=== PATIENT | female | born 1955 | race Caucasian/White ===

== ENCOUNTER 2018-07-28 17:58 | Emergency (ER) | payer OTHER ==
[2018-07-28 19:20] LABS: Absolute Lymphocytes (CBC) 2.5 K/uL (0.7-4.9); Absolute Monocytes 0.5 K/uL (0.1-1.3); Absolute Neutrophil 5.2 K/uL (1.8-8.0); Basophils % 0.7 % (0-1.3); Hematocrit 40.6 % (36.0-45.0); Lymphocytes % 29.2 % (15.3-44.8); MCH 34.1 pg (27.0-35.0); MCV 99.6 fL (80-100); MPV 7.8 fL (7.6-11.3); Monocytes % 5.4 % (3.3-12.3); RBC Red Blood Cell Count 4.08 M/uL (3.86-4.86)
--- NOTE | 2018-07-28 19:27 | RAD REPORT ---
EXAM DESCRIPTION: CT - CTHCSPWOC - 07/28/2018 7:13 pm CLINICAL HISTORY: Trauma, head and neck injury. SMASH INJURY COMPARISON: No comparisons TECHNIQUE: Axial 5 mm thick images of the head were obtained. Axial 2 mm thick images of the cervical spine were obtained with sagittal and coronal reconstruction images generated and reviewed. All CT scans are performed using dose optimization technique as appropriate and may include automated exposure control or mA/KV adjustment according to patient size. FINDINGS: CT HEAD WITHOUT CONTRAST: No acute hemorrhage, hydrocephalus or extra-axial collection is identified.No areas of brain edema or midline shift. The paranasal sinuses and mastoids are clear.The calvarium is intact. CT CERVICAL SPINE WITHOUT CONTRAST: No fracture or subluxation.Moderate lower cervical degenerative change.No prevertebral soft tissues s welling is identified. IMPRESSION: No acute intracranial or cervical spine findings.
[2018-07-28 19:29] LABS: ALT/SGPT 24 U/L (12-78); AST/SGOT 15 U/L (15-37); Alkaline Phosphatase 72 U/L (45-117); BUN Blood Urea Nitrogen 25 mg/dL (7-18); Bicarbonate 26 mmol/L (21-32); Bilirubin Direct 0.1 mg/dL (0-0.2); Bilirubin Total 0.4 mg/dL (0.2-1.0); Glucose Level 88 mg/dL (74-106); NT PRO-BNP 75 pg/mL (<125); Potassium 3.4 mmol/L (3.5-5.1); Protein, Total 6.6 g/dL (6.4-8.2); Sodium Level 139 mmol/L (136-145); Troponin (Emerg Dept Use Only) < 0.02 ng/mL (0.0-0.045)
--- NOTE | 2018-07-28 19:33 | RAD REPORT ---
EXAM DESCRIPTION: CT - Thorax Wo Con CLINICAL HISTORY: Chest pain SMASH INJURY COMPARISON: No comparisons FINDINGS: Diffuse COPD is present with linear subsegmental atelectasis in the inferior anterior ling keyona. No pleural thickening or pleural effusion. No pneumothorax. No axillary, mediastinal or hilar adenopathy. Nondisplaced hairline fracture suspected involving the left bilateral third rib. 2.8 cm left adrenal mass is present with low Hounsfield units most compatible with benign adenoma. All CT scans are performed using dose optimization technique as appropriate and may include automated exposure control or mA/KV adjustment according to patient size. IMPRESSION: Nondisplaced hairline fracture left lateral third rib suspected. Mild COPD. 2.8 cm left adrenal adenoma suspected.
[2018-07-28 19:36] LABS: Protime INR 1.21
--- NOTE | 2018-07-28 19:51 | RAD REPORT ---
EXAM DESCRIPTION: US - CP - 07/28/2018 7:41 pm CLINICAL HISTORY: SYNCOPE COMPARISON: Head C Spine Mpr Wo Con dated 07/28/2018 TECHNIQUE: Real-time sonographic evaluation of both carotid systems was performed. Doppler interroga tion was performed with waveform tracing bilaterally. FINDINGS: Normal high resistance waveforms are noted in both external carotid arteries. The common c arotid arteries and internal carotid arteries show normal low resistance waveforms. Moderate hard plaquing is seen in both carotid bulbs. Peak systolic and end diastolic velocity values and the ICA/CCA ratios are in the non-hemodynamically significant range. Visually, approximately 50% stenosis is suspected in the region of both carotid bulbs. Antegrade flow seen in both vertebral arteries. IMPRESSION: Moderate hard plaquing is seen in both carotid bulbs. Visually, approximately 50% stenosis is seen in both carotid bulb regions based on NASCET criteria. H owever, no hemodynamically significant stenosis is identified. Followup MR angiography of the neck ve ssels could be performed for further detailed assessment.
--- NOTE | 2018-07-28 19:54 | ER ---
Nurse's Notes [facility] Name: Niki Carrasquillo Age: 63 yrs Sex: Female : 1955 Arrival Date: 07/28/2018 Time: 18:00 Bed 24 Private MD: Diagnosis: Syncope and collapse;Fracture of one rib, left side Presentation: 07/28 18:00 Presenting complaint: Patient states: i passed out this morning and fell and hit my L hj rib cage; denies hitting head; takes blood thinners, Eliquis and aspirin; reports when breathing;. Transition of care: patient was not received from another setting of care. Onset of symptoms was July 28, 2018. Risk Assessment: Do you want to hurt yourself or someone else? Patient reports no desire to harm self or others. Initial Sepsis Screen: Does the patient meet any 2 criteria? No. Patient's initial sepsis screen is negative. Does the patient have a suspected source of infection? No. Patient's initial sepsis screen is negative. Care prior to arrival: None. 18:00 Method Of Arrival: Ambulatory 18:00 Acuity: SARAH 4 hj 18:30 Acuity: SARAH 3 aj1 Triage Assessment: 18:07 General: Appears in no apparent distress. uncomfortable, Behavior is calm, cooperative, hj appropriate for age. Pain: Complains of pain in left upper quadrant. Historical: - Allergies: 18:07 PENICILLINS; hj - Home Meds: 18:07 Eliquis 5 mg oral tab 1 tab 2 times per day [Active]; aspirin 81 mg Oral chew 1 tab hj once daily [Active]; carvedilol 25 mg oral tab 1 tab 2 times per day [Active]; citalopram 20 mg tab 1 tab once daily [Active]; lisinopril-hydrochlorothiazide oral oral [Active]; metformin 500 mg Oral Tb24 1 tab 2 times per day [Active]; Breo Ellipta inhalation inhalation [Active]; - PMHx: 18:07 Hypertension; Atrial Fib; Diabetes - NIDDM; COPD; hj - PSHx: 18:07 hip replacement; bronchoscopy; hj - Immunization history:: Adult Immunizations up to date. - Social history:: Smoking status: Patient uses tobacco products, Patient/guardian denies using alcohol. - Ebola Screening: : Patient negative for fever greater than or equal to 101.5 degrees Fahrenheit, and additional compatible Ebola Virus Disease symptoms Patient denies exposure to infectious person Patient denies travel to an Ebola-affected area in the 21 days before illness onset. Screenin:07 Abuse screen: Denies threats or abuse. Denies injuries from another. Nutritional hj screening: No deficits noted. Tuberculosis screening: No symptoms or risk factors identified. Fall Risk Fall in past 12 months (25 points). Assessment: 18:31 General: Appears in no apparent distress. uncomfortable, Behavior is calm, cooperative, aj1 appropriate for age. Pain: Complains of pain in left lateral posterior chest and left lateral anterior chest Pain does not radiate. Pain currently is 8 out of 10 on a pain scale. Quality of pain is described as sharp, Is continuous, Aggravated by movement, deep breathing. Neuro: Level of Consciousness is awake, alert, obeys commands, Oriented to person, place, time, situation, Moves all extremities. Full function Speech is normal, Facial symmetry appears normal, Reports a syncopal episode States that she was standing in the shower washing her hair, then the next thing she knew she was on the floor being woken up by a family member. Family member states that she heard her fall and ran into the room. She could not get the patient to respond for approximately 1 minute.. Cardiovascular: Reports syncope, Patient's skin is warm and dry. Rhythm is regular. Respiratory: Airway is patent Respiratory effort is even, unlabored, Respiratory pattern is regular, agonal. GI: No signs and/or symptoms were reported involving the gastrointestinal system. : No signs and/or symptoms were reported regarding the genitourinary system. EENT: No signs and/or symptoms were reported regarding the EENT system. Derm: Skin is pink, warm \T\ dry. normal. Musculoskeletal: Range of motion: intact in all extremities. Vital Signs: 18:07 BP 116 / 78; Pulse 75; Resp 18; Temp 97.5(TE); Pulse Ox 97% on R/A; Weight 77.11 kg; Height 5 ft. 6 in. (167.64 cm); Pain 8/10; 20:01 BP 124 / 68; Pulse 64 MON; Resp 17 S; Pulse Ox 98% on R/A; rv 18:07 Body Mass Index 27.44 (77.11 kg, 167.64 cm) hj ED Course: 18:00 Patient arrived in ED. as 18:03 Triage completed. hj 18:07 Arm band placed on right wrist. hj 18:07 Patient has correct armband on for positive identification. Placed in gown. Bed in low hj position. Call light in reach. Side rails up X 1. Adult w/ patient. 18:10 Lizy Solorio, RN is Primary Nurse. aj1 18:31 No provider procedures requiring assistance completed. aj1 18:33 Henna [facility]valos [facility]C is [facility]. snw 18:33 Armaan Abebe MD is Attending Physician. snw 18:47 Inserted saline lock: 20 gauge in right antecubital area, using aseptic technique. ds4 Blood collected. 18:49 EKG done, by ED staff, reviewed by Armaan Abebe MD. ds4 18:[address] vm2 19:11 CT completed. Patient tolerated procedure well. Patient taken to ultrasound. via 2 wheelchair. 19:14 CT Head C Spine In Process Unspecified. EDMS 19:14 CT Chest Wo Con In Process Unspecified. EDMS 19:41 Carotid Artery Bilateral US In Process Unspecified. EDMS 20:02 IV discontinued, bleeding controlled, No redness/swelling at site. Pressure dressing rv applied. Administered Medications: 19:53 Drug: Tussionex Pennkinetic ER 5 ml Route: PO; rv 20:02 Follow up: Response: Medication administered at discharge. rv Point of Care Testing: Blood Glucose: 18:39 Blood Glucose: 82 mg/dL; aj1 18:46 Blood Glucose: 92 mg/dL; ds4 Ranges: Outcome: 19:53 Discharge ordered by . snw 20:01 Discharged to home ambulatory. rv 20:01 Condition: good 20:01 Discharge instructions given to patient, Instructed on discharge instructions, follow up and referral plans. medication usage, Demonstrated understanding of instructions, follow-up care, medications, Prescriptions given X 1. 20:02 Patient left the ED. rv Signatures: Dispatcher [employer] EDMS Lizy Solorio, RN RN aj1 Henna Avalos FNP-C FNP-Csnw Martinez, Amelia as Swanson, Donovan ds4 Jan Adam RN RN Kaylene Romo 2 Douglas, Andrea, RN RN rv Corrections: (The following items were deleted from the chart) 18:09 18:07 Pulse 75bpm; Resp 18bpm; Pulse Ox 97% RA; Temp 97.5F Temporal; 77.11 kg; Height 5 hj ft. 6 in.; BMI: 27.4; Pain 8/10; hj 18:56 18:31 Neuro: Level of Consciousness is awake, alert, obeys commands, Oriented to aj1 person, place, time, situation, Moves all extremities. Full function Speech is normal, Facial symmetry appears normal, Reports a syncopal episode aj1
--- NOTE | 2018-07-28 19:54 | EDPHYS ---
Physician Documentation [facility] Name: Niki Carrasquillo Age: 63 yrs Sex: Female : 1955 Arrival Date: 07/28/2018 Time: 18:00 Bed 24 Private MD: ED Physician Armaan Abebe HPI: 07/28 18:49 This 63 yrs old Female presents to ER via Ambulatory with complaints of snw Passed Out Prior To Arrival, Rib Pain. 18:49 The patient has experienced syncope, became unresponsive, collapsed. Onset: The snw symptoms/episode began/occurred suddenly, this morning. Duration: This was a single episode, that lasted an unknown period of time. Context: the episode(s) was witnessed, by family, occurred at a relative's home, occurred while the patient was rinsing creme rinse from hair. Associated injury: Chest: left lateral anterior chest, contusion, pain. Associated signs and symptoms: The patient has no apparent associated signs or symptoms. Current symptoms: Currently, the patient is not experiencing any symptoms, the patient feels back to baseline, except tenderness to left ribs. The patient has not experienced similar symptoms in the past. lives out of state, visiting family. Historical: - Allergies: 18:07 PENICILLINS; hj - Home Meds: 18:07 Eliquis 5 mg oral tab 1 tab 2 times per day [Active]; aspirin 81 mg Oral chew 1 tab hj once daily [Active]; carvedilol 25 mg oral tab 1 tab 2 times per day [Active]; citalopram 20 mg tab 1 tab once daily [Active]; lisinopril-hydrochlorothiazide oral oral [Active]; metformin 500 mg Oral Tb24 1 tab 2 times per day [Active]; Breo Ellipta inhalation inhalation [Active]; - PMHx: 18:07 Hypertension; Atrial Fib; Diabetes - NIDDM; COPD; hj - PSHx: 18:07 hip replacement; bronchoscopy; hj - Immunization history:: Adult Immunizations up to date. - Social history:: Smoking status: Patient uses tobacco products, Patient/guardian denies using alcohol. - Ebola Screening: : Patient negative for fever greater than or equal to 101.5 degrees Fahrenheit, and additional compatible Ebola Virus Disease symptoms Patient denies exposure to infectious person Patient denies travel to an Ebola-affected area in the 21 days before illness onset. ROS: 18:49 Constitutional: Negative for fever, chills, and weight loss, Eyes: Negative for injury, snw pain, redness, and discharge, ENT: Negative for injury, pain, and discharge, Neck: Negative for injury, pain, and swelling, Cardiovascular: Negative for palpitations and edema, + chest wall pain s/p fall/syncope Respiratory: Negative for shortness of breath, cough, wheezing, and pleuritic chest pain, Abdomen/GI: Negative for abdominal pain, nausea, vomiting, diarrhea, and constipation, Back: Negative for injury and pain, : Negative for injury, bleeding, discharge, and swelling, MS/Extremity: Negative for injury and deformity, Skin: Negative for injury, rash, and discoloration, Neuro: Negative for headache, weakness, numbness, tingling, and seizure. Exam: 18:48 Constitutional: This is a well developed, well nourished patient who is awake, alert, snw and in no acute distress. Head/Face: Normocephalic, atraumatic. Eyes: Pupils equal round and reactive to light, extra-ocular motions intact. Lids and lashes normal. Conjunctiva and sclera are non-icteric and not injected. Cornea within normal limits. Periorbital areas with no swelling, redness, or edema. ENT: Nares patent. No nasal discharge, no septal abnormalities noted. Tympanic membranes are normal and external auditory canals are clear. Oropharynx with no redness, swelling, or masses, exudates, or evidence of obstruction, uvula midline. Mucous membranes moist. Neck: Trachea midline, no thyromegaly or masses palpated, and no cervical lymphadenopathy. Supple, full range of motion without nuchal rigidity, or vertebral point tenderness. No Meningismus. Chest/axilla: Normal chest wall appearance and motion. Tender with no deformity to left anterior and lateral lower ribs. No lesions are appreciated. Cardiovascular: Regular rate and rhythm with a normal S1 and S2. No gallops, murmurs, or rubs. Normal PMI, no JVD. No pulse deficits. Respiratory: Lungs have equal breath sounds bilaterally, clear to auscultation and percussion. No rales, rhonchi or wheezes noted. No increased work of breathing, no retractions or nasal flaring. Abdomen/GI: Soft, non-tender, with normal bowel sounds. No distension or tympany. No guarding or rebound. No evidence of tenderness throughout. Back: No spinal tenderness. No costovertebral tenderness. Full range of motion. Skin: Warm, dry with normal turgor. Normal color with no rashes, no lesions, and no evidence of cellulitis. MS/ Extremity: Pulses equal, no cyanosis. Neurovascular intact. Full, normal range of motion. Neuro: Awake and alert, GCS 15, oriented to person, place, time, and situation. Cranial nerves II-XII grossly intact. Motor strength 5/5 in all extremities. Sensory grossly intact. Cerebellar exam normal. Normal gait. Psych: Awake, alert, with orientation to person, place and time. Behavior, mood, and affect are within normal limits. Vital Signs: 18:07 BP 116 / 78; Pulse 75; Resp 18; Temp 97.5(TE); Pulse Ox 97% on R/A; Weight 77.11 kg; hj Height 5 ft. 6 in. (167.64 cm); Pain 8/10; 20:01 BP 124 / 68; Pulse 64 MON; Resp 17 S; Pulse Ox 98% on R/A; rv 18:07 Body Mass Index 27.44 (77.11 kg, 167.64 cm) hj MDM: 18:37 Patient medically screened. snw 19:54 ECG was reviewed by the Attending Physician. Data reviewed: vital signs, nurses notes. snw Data interpreted: Pulse oximetry: on room air is 97 %. Interpretation: normal. Counseling: I had a detailed discussion with the patient and/or guardian regarding: the historical points, exam findings, and any diagnostic results supporting the discharge/admit diagnosis, lab results, radiology results, the need for outpatient follow up, to return to the emergency department if symptoms worsen or persist or if there are any questions or concerns that arise at home. Special discussion: Based on the patient's history, exam and DX evaluation, there is no indication for emergent intervention or inpatient TX. It is understood by the patient/guardian that if the SXs persist or worsen they need to return immediately for re-evaluation. Based on the history and exam findings, there is no indication for further emergent testing or inpatient evaluation. I discussed with the patient/guardian the need to see the estimator binding for further evaluation of the symptoms. I discussed with the patient/guardian the need to see the primary care provider for further evaluation of the symptoms. 07/28 18:47 Order name: Basic Metabolic Panel; Complete Time: 19:35 snw 07/28 18:47 Order name: CBC with Diff; Complete Time: 19:35 snw 07/28 18:47 Order name: LFT's; Complete Time: 19:35 snw 07/28 18:47 Order name: Magnesium; Complete Time: 19:35 snw 07/28 18:47 Order name: NT PRO-BNP; Complete Time: 19:35 snw 07/28 18:47 Order name: PT-INR; Complete Time: 19:42 snw 07/28 18:35 Order name: CT Head C Spine; Complete Time: 19:35 snw 07/28 18:35 Order name: CT Chest Wo Con; Complete Time: 19:35 snw 07/28 18:35 Order name: EKG; Complete Time: 18:36 snw 07/28 18:35 Order name: EKG - Nurse/Tech; Complete Time: 18:39 snw 07/28 18:47 Order name: Troponin (emerg Dept Use Only); Complete Time: 19:35 snw 07/28 18:47 Order name: Carotid Artery Bilateral US; Complete Time: 19:52 snw 07/28 19:36 Order name: INCENTIVE SPIROMETRY snw 07/28 18:47 Order name: Cardiac monitoring; Complete Time: 18:48 snw 07/28 18:47 Order name: IV Saline Lock; Complete Time: 18:48 snw 07/28 18:47 Order name: Labs collected and sent; Complete Time: 18:49 snw 07/28 18:47 Order name: O2 Per Protocol; Complete Time: 18:48 snw 07/28 18:47 Order name: O2 Sat Monitoring; Complete Time: 18:48 snw Administered Medications: 19:53 Drug: Tussionex Pennkinetic ER 5 ml Route: PO; rv 20:02 Follow up: Response: Medication administered at discharge. rv Point of Care Testing: Blood Glucose: 18:39 Blood Glucose: 82 mg/dL; aj1 18:46 Blood Glucose: 92 mg/dL; ds4 Ranges: Critical Glucose Levels:Adult <50 mg/dl or >400 mg/dl <40 mg/dl or >180 mg/dl Disposition: 07/28/18 19:53 Discharged to Home. Impression: Syncope and collapse, Fracture of one rib, left side. - Condition is Stable. - Discharge Instructions: Rib Fracture, Syncope. - Prescriptions for Tylenol- Codeine #3 300-30 mg Oral Tablet - take 2 tablets by ORAL route every 6 hours As needed; 20 tablet. - Medication Reconciliation Form, Thank You Letter, Antibiotic Education, Prescription Opioid Use form. - Follow up: Private Physician; When: 2 - 3 days; Reason: Recheck today's complaints, Continuance of care, Re-evaluation by your physician. Follow up: Emergency Department; When: As needed; Reason: Worsening of condition. Signatures: Dispatcher [employer] EDMS Henna Avalos, RANDOLPH-C MERCHANDISE EXECUTION LEADER-Csnw Jan Adam, MIKALA RN Andrea Davies RN RN rv Corrections: (The following items were deleted from the chart) 20:02 19:53 07/28/2018 19:53 Discharged to Home. Impression: Syncope and collapse; Fracture rv of one rib, left side. Condition is Stable. Discharge Instructions: Rib Fracture, Syncope. Prescriptions for Tylenol-Codeine #3 300-30 mg Oral Tablet - take 2 tablets by ORAL route every 6 hours As needed; 14 tablet. and Forms are Medication Reconciliation Form, Thank You Letter, Antibiotic Education, Prescription Opioid Use. Follow up: Private Physician; When: 2 - 3 days; Reason: Recheck today's complaints, Continuance of care, Re-evaluation by your physician. Follow up: Emergency Department; When: As needed; Reason: Worsening of condition. snw
[2018-07-28] MEDS ORDERED: HYDROCODONE/CHLORPHEN 5 ML/OSYR ONE (19:58)
--- NOTE | 2018-07-29 13:36 | EKG ---
Test Date: 2018-07-28 Test Time: 18:32:48 Distilling Department Supervisor: JUAN R MEASUREMENT RESULTS: Intervals: Rate: 74 AL: 190 QRSD: 126 QT: 438 QTc: 486 [place]: P: 49 AL: 190 QRS: -16 T: 39 INTERPRETIVE STATEMENTS: Normal sinus rhythm Right bundle branch block Abnormal ECG No previous ECG available for comparison Electronically Signed On 07-29-18 13:36:02 ADOLESCENT COUNSELOR by Kojo Villalba
--- NOTE | 2018-07-29 13:36 | EKG ---
Test Date: 2018-07-28 Test Time: 20:00:10 Analytical Chemistry Teacher: JUAN R MEASUREMENT RESULTS: Intervals: Rate: 97 NC: 154 QRSD: 72 QT: 376 QTc: 477 [place]: P: 22 NC: 154 QRS: 10 T: 30 INTERPRETIVE STATEMENTS: Sinus rhythm with premature atrial complexes with aberrant conduction Possible Anterior infarct, age undetermined Abnormal ECG Electronically Signed On 07-29-18 13:36:00 RETAIL AREA MANAGER by Kojo Villalba
== END 2018-07-28 20:02 | disposition home or self-care (01) ==
LOC: ER 17:58
DX: S22.32XA Fracture of one rib, left side, initial encounter for closed fracture (principal); W19.XXXA Unspecified fall, initial encounter; Y93.89 Activity, other specified; Y92.89 Other specified places as the place of occurrence of the external cause; Z72.0 Tobacco use; Z79.01 Long term (current) use of anticoagulants; Z79.82 Long term (current) use of aspirin; Z88.0 Allergy status to penicillin; I10 Essential (primary) hypertension; I48.91 Unspecified atrial fibrillation; E11.9 Type 2 diabetes mellitus without complications
CPT/HCPCS: 36415; 70450; 71250; 72125; 80048; 80076; 82962; 83735; 83880; 84484; 85025; 85610; 93005; 93880; 99284

== ENCOUNTER 2018-08-06 18:40 | Emergency (ER) | payer OTHER ==
--- NOTE | 2018-08-06 19:54 | RAD REPORT ---
EXAM DESCRIPTION: RAD - Hip Right 2 View - 08/06/2018 7:46 pm CLINICAL HISTORY: PAIN Fall COMPARISON: No comparisons FINDINGS: Right total hip arthroplasty is noted. No fracture is identified. No dislocation is eviden t.
[2018-08-06] MEDS ORDERED: ALBUTEROL 2.5 MG/3 ML NEB SOL ONE (19:55)
[2018-08-06] MEDS ORDERED: IPRATROPIUM BROM 0.5MG/2.5ML ONE (19:56)
[2018-08-06] MEDS ORDERED: HYDROCODONE/APAP 10/325 TAB ONE (19:56)
--- NOTE | 2018-08-06 19:57 | RAD REPORT ---
EXAM DESCRIPTION: RAD - Ribs Left - 08/06/2018 7:48 pm CLINICAL HISTORY: fall, previous rib fracture, SOB COMPARISON: Thorax Wo Con dated 07/28/2018 FINDINGS: Diffuse osteopenia is seen. No new fracture of the ribs suspected. The left lung is emphys ematous.
--- NOTE | 2018-08-06 20:25 | EDPHYS ---
Physician Documentation [facility] Name: Niki Carrasquillo Age: 63 yrs Sex: Female : 1955 Arrival Date: 08/06/2018 Time: 18:41 Bed 18 Private MD: ED Physician Sergey Ornelas HPI: 08/06 19:14 This 63 yrs old Female presents to ER via Ambulatory with complaints of Rib jmm Pain, Shortness Of Breath. 19:14 The patient or guardian reports chest pain that is located primarily in the left jmm lateral posterior chest. Onset: The symptoms/episode began/occurred acutely, 1 week(s) ago. Associated signs and symptoms: Pertinent positives:. This is a 63 year old female with a history of atrial fibrillation, COPD, DM, HTN that presents to the ED with left sided rib pain beginning 1 week ago. Symptoms were worsened when she was knocked down by a [place]bull. Patient complains of increased cough with shortness of breath along with right hip pain. . Historical: - Allergies: 19:16 PENICILLINS; ak1 - Home Meds: 19:16 aspirin 81 mg Oral chew 1 tab once daily [Active]; Breo Ellipta inhalation [Active]; ak1 carvedilol 25 mg Oral tab 1 tab 2 times per day [Active]; citalopram 20 mg tab 1 tab once daily [Active]; Eliquis 5 mg Oral tab 1 tab 2 times per day [Active]; lisinopril-hydrochlorothiazide Oral [Active]; metformin 500 mg Oral Tb24 1 tab 2 times per day [Active]; - PMHx: 19:16 Atrial Fib; COPD; Diabetes - NIDDM; Hypertension; ak1 - PSHx: 19:16 hip replacement; bronchoscopy; ak1 - Immunization history:: Adult Immunizations unknown. - Social history:: Smoking status: Patient uses tobacco products, smokes one-half pack cigarettes per day. - Ebola Screening: : No symptoms or risks identified at this time. ROS: 19:14 Constitutional: Negative for fever, chills, and weight loss, Eyes: Negative for injury, jmm pain, redness, and discharge, Respiratory: Negative for shortness of breath, cough, wheezing, and pleuritic chest pain, Abdomen/GI: Negative for abdominal pain, nausea, vomiting, diarrhea, and constipation. 19:14 Cardiovascular: Positive for chest pain. 19:14 All other systems are negative. Exam: 19:14 Constitutional: This is a well developed, well nourished patient who is awake, alert, jmm and in no acute distress. Head/Face: atraumatic. 19:14 Abdomen/GI: Non distended, soft Back: Normal ROM Skin: General appearance color normal MS/ Extremity: Moves all extremities, no obvious deformities appreciated, no edema noted to the lower extremities Neuro: Awake and alert, normal gait Psych: Behavior is normal, Mood is normal, Patient is cooperative and pleasant 19:14 Chest/axilla: Inspection: Palpation: tenderness, that is moderate, of the left lateral anterior chest. 19:14 Cardiovascular: Rate: normal, Rhythm: regular, Pulses: no pulse deficits are appreciated. 19:14 Respiratory: the patient does not display signs of respiratory distress, Respirations: normal, Breath sounds: wheezing: that is mild, is scattered. Vital Signs: 19:16 BP 113 / 76; Pulse 76; Resp 20; Temp 98.1(O); Pulse Ox 97% on R/A; Weight 77.11 kg (R); ak1 Height 5 ft. 6 in. (167.64 cm) (R); Pain 9/10; 20:14 BP 119 / 73; Pulse 61; Pulse Ox 100% on R/A; ak1 20:39 BP 121 / 76; Pulse 67; Resp 18; Pulse Ox 100% on R/A; lp1 19:16 Body Mass Index 27.44 (77.11 kg, 167.64 cm) ak1 MDM: 19:14 Patient medically screened. [facility] 20:21 Data reviewed: vital signs, nurses notes. Counseling: I had a detailed discussion with debora the patient and/or guardian regarding: the historical points, exam findings, and any diagnostic results supporting the discharge/admit diagnosis, radiology results, the need for outpatient follow up, to return to the emergency department if symptoms worsen or persist or if there are any questions or concerns that arise at home. 08/06 19:16 Order name: Ribs Left XRAY; Complete Time: 20:02 lacey 08/06 19:16 Order name: Hip Right 2 View XRAY; Complete Time: 20:02 lacey Administered Medications: 19:53 Drug: [place] 10 mg-325 mg 1 tabs Route: PO; ak1 20:40 Follow up: Response: No adverse reaction; Pain is decreased lp1 19:53 Drug: DuoNeb (3:1) (2.5 mg - 0.5 mg) 3 ml Route: Nebulizer; ak1 20:40 Follow up: Response: Marked relief of symptoms lp1 Disposition: 08/06/18 20:24 Discharged to Home. Impression: Rib Contusion. - Condition is Stable. - Discharge Instructions: Rib Contusion, Incentive Spirometer. - Prescriptions for Prednisone 20 mg Oral Tablet - take 3 tablet by ORAL route once daily for 5 days; 15 tablet. Ultracet 37.5- 325 mg Oral Tablet - take 1 tablet by ORAL route every 6 hours - for up to 5 days; do not exceed 8 tablets per day.; 20 tablet. - Medication Reconciliation Form, Thank You Letter, Antibiotic Education, Prescription Opioid Use form. - Follow up: Private Physician; When: As needed; Reason: Recheck today's complaints, Continuance of care, Re-evaluation by your physician. Signatures: Dispatcher [employer] EDZoran Calhoun PA PA jmm Pena, Laura, RN RN lp1 Bhumi Maddox RN RN ak1 Corrections: (The following items were deleted from the chart) 20:41 20:24 08/06/2018 20:24 Discharged to Home. Impression: Rib Contusion. Condition is lp1 Stable. Forms are Medication Reconciliation Form, Thank You Letter, Antibiotic Education, Prescription Opioid Use. Follow up: Private Physician; When: As needed; Reason: Recheck today's complaints, Continuance of care, Re-evaluation by your physician. debora
--- NOTE | 2018-08-06 20:25 | ER ---
Nurse's Notes [facility] Name: Niki Carrasquillo Age: 63 yrs Sex: Female : 1955 Arrival Date: 08/06/2018 Time: 18:41 Bed 18 Private MD: Diagnosis: Rib Contusion Presentation: 08/06 19:09 Presenting complaint: Patient states: she was seen in ER last week s/p fall dx with ak1 left broken rib. pt was knocked down Friday by large dog fell into wall. pt c/o left rib pain and right hip pain. no resp distress noted. Transition of care: patient was not received from another setting of care. Onset of symptoms was August 02, 2018. Risk Assessment: Do you want to hurt yourself or someone else? Patient reports no desire to harm self or others. Initial Sepsis Screen: Does the patient meet any 2 criteria? No. Patient's initial sepsis screen is negative. Does the patient have a suspected source of infection? No. Patient's initial sepsis screen is negative. Care prior to arrival: None. 19:09 Method Of Arrival: Ambulatory ak1 19:09 Acuity: SARAH 4 ak1 Triage Assessment: 19:16 General: Appears uncomfortable, Behavior is calm, cooperative. Pain: Complains of pain ak1 in left rib. EENT: No signs and/or symptoms were reported regarding the EENT system. Neuro: No deficits noted. Cardiovascular: No deficits noted. Respiratory: Reports shortness of breath Onset: The symptoms/episode began/occurred Friday08/02/18, the patient has mild shortness of breath. GI: No signs and/or symptoms were reported involving the gastrointestinal system. : No signs and/or symptoms were reported regarding the genitourinary system. Derm: No signs and/or symptoms reported regarding the dermatologic system. Musculoskeletal: No signs and/or symptoms reported regarding the musculoskeletal system. Historical: - Allergies: 19:16 PENICILLINS; ak1 - Home Meds: 19:16 aspirin 81 mg Oral chew 1 tab once daily [Active]; Breo Ellipta inhalation [Active]; ak1 carvedilol 25 mg Oral tab 1 tab 2 times per day [Active]; citalopram 20 mg tab 1 tab once daily [Active]; Eliquis 5 mg Oral tab 1 tab 2 times per day [Active]; lisinopril-hydrochlorothiazide Oral [Active]; metformin 500 mg Oral Tb24 1 tab 2 times per day [Active]; - PMHx: 19:16 Atrial Fib; COPD; Diabetes - NIDDM; Hypertension; ak1 - PSHx: 19:16 hip replacement; bronchoscopy; ak1 - Immunization history:: Adult Immunizations unknown. - Social history:: Smoking status: Patient uses tobacco products, smokes one-half pack cigarettes per day. - Ebola Screening: : No symptoms or risks identified at this time. Screenin:18 Abuse screen: Denies threats or abuse. Denies injuries from another. Nutritional ak1 screening: No deficits noted. Tuberculosis screening: No symptoms or risk factors identified. Fall Risk None identified. Assessment: 19:19 Respiratory: Airway is patent Respiratory effort is even. ak1 19:19 Reassessment: Patient appears in no apparent distress at this time. see triage ak1 assessment. 20:40 Reassessment: Patient is alert, oriented x 3, equal unlabored respirations, skin lp1 warm/dry/pink. Patient educated on use of incentive spirometer, demonstrates understanding. Vital Signs: 19:16 BP 113 / 76; Pulse 76; Resp 20; Temp 98.1(O); Pulse Ox 97% on R/A; Weight 77.11 kg (R); ak1 Height 5 ft. 6 in. (167.64 cm) (R); Pain 9/10; 20:14 BP 119 / 73; Pulse 61; Pulse Ox 100% on R/A; ak1 20:39 BP 121 / 76; Pulse 67; Resp 18; Pulse Ox 100% on R/A; lp1 19:16 Body Mass Index 27.44 (77.11 kg, 167.64 cm) ak1 ED Course: 18:41 Patient arrived in ED. as 19:01 Zoran Garcia PA is PHCP. [facility] 19:01 Sergey Ornelas MD is Attending Physician. [facility] 19:09 Bhumi Maddox, MIKALA is Primary Nurse. ak1 19:13 Triage completed. ak1 19:16 Arm band placed on Patient placed in an exam room, on a stretcher, on pulse oximetry, ak1 Patient notified of wait time. 19:18 Patient has correct armband on for positive identification. Bed in low position. Call ak1 light in reach. Side rails up X 1. Pulse ox on. NIBP on. 19:47 Ribs Left XRAY In Process Unspecified. EDMS 19:47 Hip Right 2 View XRAY In Process Unspecified. EDMS 20:39 No provider procedures requiring assistance completed. Patient did not have IV access lp1 during this emergency room visit. Administered Medications: 19:53 Drug: [place] 10 mg-325 mg 1 tabs Route: PO; ak1 20:40 Follow up: Response: No adverse reaction; Pain is decreased lp1 19:53 Drug: DuoNeb (3:1) (2.5 mg - 0.5 mg) 3 ml Route: Nebulizer; ak1 20:40 Follow up: Response: Marked relief of symptoms lp1 Outcome: 20:24 Discharge ordered by . [facility] 20:41 Discharged to home ambulatory, with friend. lp1 20:41 Condition: good 20:41 Discharge instructions given to patient, Instructed on discharge instructions, follow up and referral plans. medication usage, Incentive spirometer Demonstrated understanding of instructions, follow-up care, medications, incentive spirometer use Prescriptions given X 2. 20:41 Patient left the ED. lp1 Signatures: Dispatcher [employer] EDMS Zoran Garcia PA PA jmm Martinez, Amelia as Pena, Laura, RN RN lp1 Bhumi Maddox RN RN ak1
== END 2018-08-06 20:41 | disposition home or self-care (01) ==
LOC: ER 18:40
DX: S20.219A Contusion of unspecified front wall of thorax, initial encounter (principal); W54.1XXA Struck by dog, initial encounter; Y93.9 Activity, unspecified; Y92.9 Unspecified place or not applicable; Z79.82 Long term (current) use of aspirin; Z88.0 Allergy status to penicillin; I10 Essential (primary) hypertension; E11.9 Type 2 diabetes mellitus without complications; I48.91 Unspecified atrial fibrillation; F17.210 Nicotine dependence, cigarettes, uncomplicated
CPT/HCPCS: 94640; 99284

== ENCOUNTER 2025-07-08 09:29 | Emergency (ER) | payer OTHER ==
--- OUTSIDE RECORDS SUMMARY | 2025-07-08 09:33 | XMS REPORT | Continuity of Care Document ---
Author Name Unknown Address [address] [facility] [address] [place] [address] [facility] [place] Address [address] [facility] [place] [address] Care Team Providers Care Motor Vehicle Salesperson Name Role Phone KELLY RODRIGUEZ Primary Care Physician Unavailab MIGUEL Frausto Attending Clinician Unavailable MIGUEL HAWKINS Attending Clinician Unavailable MIGUEL HAWKINS Admitting Clinician Unavailable Payers Payer Name Policy Type Policy Number Effective Date Expirati on Date Source [facility] DUAL COMP CHOICE PPO [id number] 2025 00:00:00 Problems Condition Name Condition Details Condition Category Status Onset Date Resolution Date Last Treatment Date Treating Clinician Comments Source Smokes tobacco daily Smokes Tobacco Daily Problem Active 04-14 00:00: 00 [facility] Senile osteoporos is Senile Osteoporos is Problem Active 01-19 [facility] Degenerati on of thoracic interverte bral disc Degenerati on of Thoracic Interverte bral Disc Problem Active 01-12 00:00: 00 [place] [facility] Kyphosis of thoracic spine Kyphosis of Thoracic Spine Problem Active 06[facility]21 [facility] Gastroesop hageal reflux disease Gastroesop hageal Reflux Disease Problem Active 03-11 00:00: 00 [facility] Migraine with aura Migraine with Aura Problem Active 03-09 00:00: 00 [place] [facility] Essential hypertensi on Essential Hypertensi on Problem Active 03-09 00:00: 00 [place] [facility] Atrial fibrillati on Atrial Fibrillati on Problem Active 03-09 00:00: 00 [place] [facility] Seasonal allergy Seasonal Allergy Problem Active 03-09 00:00: 00 [place] [facility] Chronic obstructiv e pulmonary disease Chronic Obstructiv e Pulmonary Disease Problem Active 03-09 00:00: 00 [place] [facility] Nocturnal muscle spasm Nocturnal Muscle Spasm Problem Active 03-09 00:00: 00 [place] [facility] History of pulmonary embolus History of Pulmonary Embolus Problem Active 03-09 00:00: 00 [place] [facility] Diabetes mellitus Diabetes Mellitus Problem Active 03-09 00:00: 00 [place] [facility] Mixed hyperlipid emia Mixed Hyperlipid emia Problem Active 03-09 00:00: 00 [place] [facility] Mixed anxiety and depressive disorder Mixed Anxiety and Depressive Disorder Problem Active 03-09 00:00: 00 [place] [facility] Insomnia Insomnia Problem Active 03-09 00:00: 00 [place] [facility] Supraventr icular tachycardi a Supraventr icular Tachycardi a Problem Active 09-22 00:00: 00 [place] [facility] Allergies, Adverse Reactions, Alerts Allergy Name Allergy Type Status Severity Reaction(s) Onset Date Inactive Date Treating Clinician Comments Source Latex Propensi ty to adverse reaction s Active Hives 03-04 00:00: 00 [facility] Penicill ins Propensi ty to adverse reaction s Active Anaphylaxis 03-04 00:00: 00 [facility] LATEX DRUG INGREDI Active Hives 03-04 00:00: 00 [facility] PENICILL INS Drug Class Active Anaphylaxis 03-04 00:00: 00 [facility] Latex Allergy to substanc e Active Moderate severity Rash [facility] PENICILL INS Allergy to substanc e Active Severe Anaphylaxis [facility] Social History Social Habit Start Date Stop Date Quantity Comments Source ASSERTION Possible [facility] 1955 00:[facility]:00 1955 00:00:00 [facility] Smoking Status Start Date Stop Date Source Former Smoker [facility] Tobacco smoking consumption unknown [facility] Medications Ordered Medication Name Filled Medication Name Start Date Stop Date Current Medication? Ordering Clinician Indication Dosage Frequency Signature (SIG) Comments Components Source levoFLOXaci n (LEVAQUIN) tablet 500 mg 03-05 04:30: 00 03-05 04:28 :00 No 500mg 500 mg, Oral, ONCE, 1 dose, On Fri03/04/25 at 2330, KAELYN, Reason for Anti-Infec tive: Documented Infection, Documented Infection Site: Urine, Duration of therapy: Once (ED) [facility] codeine-gua ifenesin (ROBITUSSIN AC) 10-100 mg/5 mL oral solution 10 mL 03-05 02:45: 00 03-05 03:00 :00 No 10mL 10 mL, Oral, ONCE, 1 dose, On Fri03/04/25 at 2145, KAELYN [facility] ketorolac (TORADOL) injection 15 mg 03-05 02:45: 00 03-05 01:37 :00 No 15mg 15 mg, Slow IV Push, ONCE, 1 dose, On Fri03/04/25 at 2145, Routine [facility] NaCl 0.9% (NS) injection 5 mL 03-05 01:23: 58 Yes 5mL 5 mL, Slow IV Push, PRN - SEE INSTRUCTIO NS, Starting on Fri03/04/25 at 2022, Until Discontinu ed, 10 mL [facility] levoFLOXaci n 500 mg tablet 03-04 00:00: 00 Yes [id number] 500mg Take 1 tablet by mouth every 24 hours. [facility] codeine-gua ifenesin 10-100 mg/5 mL oral solution 03-04 00:00: 00 03-12 04:59 :00 No 5mL Take 5 mL by mouth every 6 hours as needed for Cough for up to 7 days. Indication s: COUGH [facility] trazodone 150 mg tablet TAKE 1 TABLET BY MOUTH NEEDED AT BEDTIME trazodone 150 mg tablet TAKE 1 TABLET BY MOUTH NEEDED AT BEDTIME No 1 trazodone 150 mg tablet TAKE 1 TABLET BY MOUTH NEEDED AT BEDTIME [facility] escitalopra m 20 mg tablet escitalopra m 20 mg tablet No escitalopr am 20 mg tablet [facility] atorvastati n 40 mg tablet TAKE 1 TABLET BY MOUTH EVERY EVENING atorvastati n 40 mg tablet TAKE 1 TABLET BY MOUTH EVERY EVENING No atorvastat in 40 mg tablet TAKE 1 TABLET BY MOUTH EVERY EVENING [facility] lisinopril 20 mg-hydrochl orothiazide 12.5 mg tablet TAKE 1 TABLET BY MOUTH EVERY DAY IN THE MORNING lisinopril 20 mg-hydrochl orothiazide 12.5 mg tablet TAKE 1 TABLET BY MOUTH EVERY DAY IN THE MORNING No 1 Q1D lisinopril 20 mg-hydroch lorothiazi de 12.5 mg tablet TAKE 1 TABLET BY MOUTH EVERY DAY IN THE MORNING [facility] Tymlos 80 mcg/dose (3,120 mcg/1.56 mL) subcutaneou s pen injector Inject 80 micrograms every day by subcutaneou s route for 90 days. Tymlos 80 mcg/dose (3,120 mcg/1.56 mL) subcutaneou s pen injector Inject 80 micrograms every day by subcutaneou s route for 90 days. No 80micro gram(s) Q1D Tymlos 80 mcg/dose (3,120 mcg/1.56 mL) subcutaneo us pen injector Inject 80 micrograms every day by subcutaneo us route for 90 days. [facility] Breztri Aerosphere 160 mcg-9mcg-4. 8mcg/actuat ion HFA aerosol inhaler Inhale 2 puffs twice a day by inhalation route. Breztri Aerosphere 160 mcg-9mcg-4. 8mcg/actuat ion HFA aerosol inhaler Inhale 2 puffs twice a day by inhalation route. No 2puff(s ) BID Breztri Aerosphere 160 mcg-9mcg-4 .8mcg/actu ation HFA aerosol inhaler Inhale 2 puffs twice a day by inhalation route. [facility] albuterol sulfate 2.5 mg/3 mL (0.083 %) solution for nebulizatio n Inhale 3 mL every 8 hours by nebulizatio n route as needed, for Cough/wheez ing. albuterol sulfate 2.5 mg/3 mL (0.083 %) solution for nebulizatio n Inhale 3 mL every 8 hours by nebulizatio n route as needed, for Cough/wheez ing. No 3mL Q8H albuterol sulfate 2.5 mg/3 mL (0.083 %) solution for nebulizati on Inhale 3 mL every 8 hours by nebulizati on route as needed, for Cough/whee zing. [facility] azelastine 137 mcg-flutica sone 50 mcg/spray nasal spray 1 SPRAY INTRANASALL Y TWICE DAILY azelastine 137 mcg-flutica sone 50 mcg/spray nasal spray 1 SPRAY INTRANASALL Y TWICE DAILY No azelastine 137 mcg-flutic asone 50 mcg/spray nasal spray 1 SPRAY INTRANASAL LY TWICE DAILY [facility] budesonide 0.5 mg/2 mL suspension for nebulizatio n INHALE 1 VIAL VIA NEBULIZER TWICE A DAY budesonide 0.5 mg/2 mL suspension for nebulizatio n INHALE 1 VIAL VIA NEBULIZER TWICE A DAY No budesonide 0.5 mg/2 mL suspension for nebulizati on INHALE 1 VIAL VIA NEBULIZER TWICE A DAY [facility] albuterol sulfate HFA 90 mcg/actuati on aerosol inhaler INHALE 2 PUFFS EVERY 4-6 HOURS BY INHALATION ROUTE NEEDED, FOR COUGH/WHEEZ ING. albuterol sulfate HFA 90 mcg/actuati on aerosol inhaler INHALE 2 PUFFS EVERY 4-6 HOURS BY INHALATION ROUTE NEEDED, FOR COUGH/WHEEZ ING. No 2puff(s ) Q5H albuterol sulfate HFA 90 mcg/actuat ion aerosol inhaler INHALE 2 PUFFS EVERY 4-6 HOURS BY INHALATION ROUTE NEEDED, FOR COUGH/WHEE ZING. [facility] aspirin 81 mg tablet Take by oral route. aspirin 81 mg tablet Take by oral route. No aspirin 81 mg tablet Take by oral route. [facility] carvedilol 12.5 mg tablet TAKE 1 TABLET TWICE A DAY BY ORAL ROUTE FOR 90 DAYS. carvedilol 12.5 mg tablet TAKE 1 TABLET TWICE A DAY BY ORAL ROUTE FOR 90 DAYS. No 1 BID carvedilol 12.5 mg tablet TAKE 1 TABLET TWICE A DAY BY ORAL ROUTE FOR 90 DAYS. [facility] cetirizine 10 mg tablet TAKE 1 TABLET BY MOUTH EVERY DAY cetirizine 10 mg tablet TAKE 1 TABLET BY MOUTH EVERY DAY No 1 Q1D cetirizine 10 mg tablet TAKE 1 TABLET BY MOUTH EVERY DAY [facility] Eliquis 5 mg tablet Take 1 tablet twice a day by oral route for 90 days. Eliquis 5 mg tablet Take 1 tablet twice a day by oral route for 90 days. No 1 BID Eliquis 5 mg tablet Take 1 tablet twice a day by oral route for 90 days. [facility] gabapentin 300 mg capsule TAKE 1 CAPSULE BY MOUTH THREE TIMES A DAY FOR 30 DAYS gabapentin 300 mg capsule TAKE 1 CAPSULE BY MOUTH THREE TIMES A DAY FOR 30 DAYS No 1capsul e(s) TID gabapentin 300 mg capsule TAKE 1 CAPSULE BY MOUTH THREE TIMES A DAY FOR 30 DAYS [facility] multivitami n multivitami n No multivitam in [facility] nitroglycer in 0.[address] 1 TABLET NEEDED BY SUBLINGUAL ROUTE DIRECTED. nitroglycer in 0.[address] 1 TABLET NEEDED BY SUBLINGUAL ROUTE DIRECTED. No 1 nitroglyce rin 0.[address] 1 TABLET NEEDED BY SUBLINGUAL ROUTE DIRECTED. [facility] Probiotic Probiotic No Probiotic [facility] Qulipta 60 mg tablet TAKE 1 TABLET BY MOUTH EVERY DAY Qulipta 60 mg tablet TAKE 1 TABLET BY MOUTH EVERY DAY No 1 Q1D Qulipta 60 mg tablet TAKE 1 TABLET BY MOUTH EVERY DAY [facility] tizanidine 6 mg capsule TAKE 1 CAPSULE BY MOUTH EVERY DAY AT BEDTIME NEEDED tizanidine 6 mg capsule TAKE 1 CAPSULE BY MOUTH EVERY DAY AT BEDTIME NEEDED No 1capsul e(s) tizanidine 6 mg capsule TAKE 1 CAPSULE BY MOUTH EVERY DAY AT BEDTIME NEEDED [facility] vilazodone 20 mg tablet Take 1 tablet every day by oral route for 90 days. vilazodone 20 mg tablet Take 1 tablet every day by oral route for 90 days. No 1 Q1D vilazodone 20 mg tablet Take 1 tablet every day by oral route for 90 days. [facility] dexlansopra zole 60 mg capsule,bip hase delayed release TAKE 1 CAPSULE BY MOUTH EVERY DAY dexlansopra zole 60 mg capsule,bip hase delayed release TAKE 1 CAPSULE BY MOUTH EVERY DAY No dexlansopr azole 60 mg capsule,bi phase delayed release TAKE 1 CAPSULE BY MOUTH EVERY DAY [facility] Vital Signs Vital Name Observation Time Observation Value Comments S ource BP Diastolic 2025-06-21 00:00:00 95 mm[Hg] [facility] Body Weight 2025-06-21 00:00:00 2038.4 [oz_av] [facility] BP Systolic 2025-06-21 00:00:00 159 mm[Hg] [facility] Height 2025-06-21 00:00:00 64 [in_i] [facility] BMI (Body Mass Index) 2025-06-21 00:00:00 21.9 kg/m2 [facility] Height 2025-05-25 00:00:00 64 [in_i] [facility] BP Diastolic 2025-05-25 00:00:00 74 mm[Hg] [facility] Body Weight 2025-05-25 00:00:00 2067.2 [oz_av] [facility] BP Systolic 2025-05-25 00:00:00 122 mm[Hg] [facility] BMI (Body Mass Index) 2025-05-25 00:00:00 22.2 kg/m2 [facility] BP Systolic 2025-05-19 00:00:00 118 mm[Hg] [facility] Height 2025-05-19 00:00:00 64 [in_i] [facility] Body Weight 2025-05-19 00:00:00 2000 [oz_av] [facility] BMI (Body Mass Index) 2025-05-19 00:00:00 21.5 kg/m2 [facility] BP Diastolic 2025-05-19 00:00:00 78 mm[Hg] [facility] BP Diastolic 2025-05-09 00:00:00 69 mm[Hg] [facility] Height 2025-05-09 00:00:00 64 [in_i] [facility] BP Systolic 2025-05-09 00:00:00 103 mm[Hg] [facility] Body Weight 2025-05-09 00:00:00 2073.6 [oz_av] [facility] BMI (Body Mass Index) 2025-05-09 00:00:00 22.2 kg/m2 [facility] Systolic blood pressure 2025-03-05 04:31:00 130 mm[Hg] [facility] Diastolic blood pressure 2025-03-05 04:31:00 76 mm[Hg] [facility] Heart rate 2025-03-05 04:31:00 64 /min [facility] Body temperature 2025-03-05 04:31:00 36.61 Danay [facility] Respiratory rate 2025-03-05 04:31:00 18 /min [facility] Oxygen saturation in Arterial blood by Pulse oximetry 2025-03-05 04:31:00 92 /min [facility] Body height 2025-03-05 01:02:00 154.9 cm [facility] Body weight 2025-03-05 01:02:00 59.875 kg [facility] BMI 2025-03-05 01:02:00 24.94 kg/m2 [facility] BP Systolic 2025-02-15 00:00:00 141 mm[Hg] [facility] Height 2025-02-15 00:00:00 64 [in_i] [facility] BP Diastolic 2025-02-15 00:00:00 79 mm[Hg] [facility] Body Weight 2025-02-15 00:00:00 2201.6 [oz_av] [facility] BMI (Body Mass Index) 2025-02-15 00:00:00 23.6 kg/m2 [facility] Body Weight 2025-01-05 00:00:00 2137.6 [oz_av] [facility] BMI (Body Mass Index) 2025-01-05 00:00:00 22.9 kg/m2 [facility] Height 2025-01-05 00:00:00 64 [in_i] [facility] BP Systolic 2024-12-07 00:00:00 124 mm[Hg] [facility] Body Weight 2024-12-07 00:00:00 2166.4 [oz_av] [facility] BMI (Body Mass Index) 2024-12-07 00:00:00 23.2 kg/m2 [facility] BP Diastolic 2024-12-07 00:00:00 64 mm[Hg] [facility] Height 2024-12-07 00:00:00 64 [in_i] [facility] Body Weight 2024-11-18 00:00:00 2217.6 [oz_av] [facility] Height 2024-11-18 00:00:00 64 [in_i] [facility] BMI (Body Mass Index) 2024-11-18 00:00:00 23.8 kg/m2 [facility] BP Diastolic 2024-11-18 00:00:00 75 mm[Hg] [facility] BP Systolic 2024-11-18 00:00:00 127 mm[Hg] [facility] Height 2024-08-18 00:00:00 64 [in_i] [facility] BP Diastolic 2024-08-18 00:00:00 91 mm[Hg] [facility] BMI (Body Mass Index) 2024-08-18 00:00:00 19.7 kg/m2 [facility] BP Systolic 2024-08-18 00:00:00 131 mm[Hg] [facility] Body Weight 2024-08-18 00:00:00 1840 [oz_av] [facility] BMI (Body Mass Index) 2024-07-06 00:00:00 20.5 kg/m2 [facility] BP Systolic 2024-07-06 00:00:00 137 mm[Hg] [facility] BP Diastolic 2024-07-06 00:00:00 94 mm[Hg] [facility] Height 2024-07-06 00:00:00 64 [in_i] [facility] Body Weight 2024-07-06 00:00:00 1913.6 [oz_av] [facility] BP Systolic 2024-06-18 00:00:00 126 mm[Hg] [facility] BMI (Body Mass Index) 2024-06-18 00:00:00 19.4 kg/m2 [facility] Body Weight 2024-06-18 00:00:00 1808 [oz_av] [facility] BP Diastolic 2024-06-18 00:00:00 91 mm[Hg] [facility] Height 2024-06-18 00:00:00 64 [in_i] [facility] Height 2024-06-16 00:00:00 64 [in_i] [facility] BP Systolic 2024-06-16 00:00:00 136 mm[Hg] [facility] BMI (Body Mass Index) 2024-06-16 00:00:00 19.8 kg/m2 [facility] Body Weight 2024-06-16 00:00:00 1849.6 [oz_av] [facility] BP Diastolic 2024-06-16 00:00:00 87 mm[Hg] [facility] Body Weight 2024-05-26 00:00:00 1945.6 [oz_av] [facility] BP Diastolic 2024-05-26 00:00:00 90 mm[Hg] [facility] Height 2024-05-26 00:00:00 64 [in_i] [facility] BP Systolic 2024-05-26 00:00:00 147 mm[Hg] [facility] BMI (Body Mass Index) 2024-05-26 00:00:00 20.9 kg/m2 [facility] Height 2024-03-09 00:00:00 64 [in_i] [facility] BP Systolic 2024-03-09 00:00:00 127 mm[Hg] [facility] BP Diastolic 2024-03-09 00:00:00 92 mm[Hg] [facility] BMI (Body Mass Index) 2024-03-09 00:00:00 20.4 kg/m2 [facility] Body Weight 2024-03-09 00:00:00 1900.8 [oz_av] [facility] Procedures Procedure Date / Time Performed Performing Clinician Source XR, chest, 2 view 2025-05-19 00:00:00 [facility] XR, ankle, 3 or more view 2025-05-09 00:00:[address] [facility] XR, hip, unilateral, 2 or 3 view 2025-05-09 00:00:[address] [facility] EKG-12 LEAD 2025-03-05 04:24:21 Miguel Hawkins [facility] URINALYSIS 2025-03-05 02:42:00 Miguel Hawkins [facility] XR CHEST 1 VW 2025-03-05 01:56:31 Miguel Hawkins [facility] TROPONIN I 2025-03-05 01:35:00 Miguel Hawkins [facility] HEPATIC FUNCTION PANEL ([id number]) (ALB,T.PRO,BILI T,BU/BC,ALT,AST,ALK PHOS) 2025-03-05 01:35:00 Miguel Hawkins [facility] BASIC METABOLIC PANEL (NA, K, CL, CO2, GLUCOSE, BUN, CREATININE, CA) 2025-03-05 01:35:00 Miguel Hawkins [facility] CBC WITH DIFF 2025-03-05 01:35:00 Miguel Hawkins [facility] D-DIMER 2025-03-05 01:35:00 Miguel Hawkins [facility] INFLUENZA A/B RSV COVID NAAT 2025-03-05 01:35:00 Miguel Hawkins [facility] N-TERMINAL PRO-BNP 2025-03-05 01:35:00 Miguel Hawkins [facility] XR, thoracic spine, 3 view 2025-01-05 00:00:[address] [facility] XR, cervical spine, 2 or 3 view 2025-01-05 00:00:[address] [facility] XR, lumbosacral spine, 2 or 3 view 2025-01-05 00:00:[address] [facility] DEXA, axial skeleton + vertebral fracture assessment 2025-01-05 00:00:[address] [facility] XR, shoulder, 2 or more view 2024-12-07 00:00:[address] [facility] XR, elbow, 3 or more view 2024-12-07 00:00:[address] [facility] DEXA, axial skeleton + vertebral fracture assessment 2024-11-22 00:00:[address] [facility] XR, chest, 2 view 2024-05-26 00:00:00 [facility] electrocardiogram, routine ECG, 12 leads min 2024-05-26 00:00:[address] [facility] Procedure on Lung 2021-09-22 00:00:00 [facility] Tubal Ligation 1995-09-22 00:00:[address] [facility] Extraction of Cataract [facility] Total Replacement of Hip [facility] Encounters Start Date/Time End Date/Time Encounter Type Admission Type Attending Clinicians Care Facility Care Department Encounter ID Source 2025-06-21 00:00:00 2025-06-21 00:00:00 Kelly Rodriguez APRN, MSN, SPOOL CLEANER HAND-BC: [address] [place] [address] , Ph. [facility] 09[address] [facility] 2025-05-25 00:00:00 2025-05-25 00:00:00 Kelly Rodriguez APRN, MSN, SPOOL CLEANER HAND-BC: [address] [place] [address] , Ph. [facility] 0[address] [facility] [address] [facility] 2025-05-19 00:00:00 2025-05-19 00:00:00 Kelly Rodriguez APRN, MSN, SPOOL CLE[employer]ER HAND-BC: [address] [place] [address] , Ph. [facility] 0828 [facility] 2025-05-09 00:00:00 2025-05-09 00:00:00 Kelly Rodriguez APRN, MSN, SPO[employer] CLE[employer]ER HAND-BC: [address] [place] [address] , Ph. [facility] 0818 [facility] 2025-03-04 20:04:00 2025-03-04 23:42:00 Emergency X MIGUEL HAWKINS [facility] ERT [id number] [facility] 2025-02-15 00:00:00 2025-02-15 00:00:00 Kelly Rodriguez APRN, MSN, [employer] HAND-BC: [address] [place] [address] , Ph. [facility]27 [facility] 2025-01-05 00:00:00 2025-01-05 00:00:00 Kelly Rodriguez APRN, MSN, SPO[employer] CLE[employer]ER HAND-BC: [address] [place] [address] , Ph. [facility] 0416 [facility] 2024-12-07 00:00:00 2024-12-07 00:00:00 Kelly Rodriguez APRN, MSN, S[employer] HAND-BC: [address] [place] [address] , Ph. [facility] [address] [place] [facility] 2024-11-18 00:00:00 2024-11-18 00:00:00 Kelly Rodriguez APRN, MSN, SPO[employer] CLE[employer]ER HAND-BC: [address] [place] [address] , Ph. [facility] 0227 [facility] 2024-08-18 00:00:00 2024-08-18 00:00:00 Kelly Rodriguez APRN, MSN, [employer] CLE[employer] HAND-BC: [address] [place] [address], [address] [place] [phone] , Ph. [facility] 1127 [facility] 2024-07-06 00:00:00 2024-07-06 00:00:00 Kelly Rodriguez APRN, MSN, SPOOL CLE[employer]ER HAND-BC: [address] [facility], [address] [facility], [place] [address] , Ph. [facility] 1015 [facility] 2024-06-18 00:00:00 2024-06-18 00:00:00 Kelly Rodriguez APRN, MSN, [employer] HAND-BC: [address] [facility], [address] [place] [phone] , Ph. [facility] 0927 [facility] 2024-06-16 00:00:00 2024-06-16 00:00:00 Kelly Rodriguez APRN, MSN, [facility]: [address] [facility], [address] [address] , Ph. [facility] 0925 [facility] 2024-05-26 00:00:00 2024-05-26 00:00:00 Kelly Rodriguez APRN, MSN, [employer] HAND-BC: [address] [facility], [address] [address] , Ph. [facility] 0904 [facility] 2024-03-09 00:00:00 2024-03-09 00:00:00 Kelly Rodriguez APRN, MSN, [employer] HAND-BC: [address] [facility], [address] [address] , Ph. [facility] 0618 [facility] Results Test Description Test Time Test Comments Results Result Co mments Source [facility] 1 [id number] 02:07:08EXAMINATION: XR CHEST 1 VW, 03/04/2025 9:05 PM ORDERING PHYSICIAN: MIGUEL HAWKINS HISTORY: fever, cough COMPARISON(S): None. TECHNIQUE: Portable AP view FINDINGS:Support Devices: External monitoring leads. Lungs/Pleura: Lungs are clear. No pleural effusion or pneumothorax. Heart/Mediastinum: Cardiac silhouette is normal. Calcification of thethoracic aorta. Bones/Soft Tissues: Degenerative changesof the shoulders and spine. Upper Abdomen: Unremarkable.[facility] [id number] 02:05:22* Test Item Value Reference Range Interpretation Comme nts NT-proBNP (test code = 54428-9) 565 pg/mL <=125 SALVATORE (test code = SALVATORE) Result Indeterminate-Consid er causes of NT-proBNP elevation other than Heart failure such as acute coronary syndrome, pulmonary embolism, pulmonary hypertension, sepsis, stroke, and renal dysfunction. Lab Interpretation (test code = 84469-6) Abnormal [facility] Metabilic Panel (NA, K, CL, CO2, GLUCOSE, BUN, CREATININE, CA)2025-03-05 01:56:40* Test Item Value Reference Range Interpretation Comme nts NA (test code = 0832404316) 136 mmol/L 135-145 K (test code = 9290415345) 3.5 mmol/L 3.5-5.0 CL (test code = 5869815946) 104 mmol/L 98-108 CO2 TOTAL (test code = 1661004288) 26 mmol/L 23-31 AGAP (test code = 8783044852) 6 2-16 BUN (test code = 8605942938) 12 mg/dL 7-23 GLUCOSE (test code = 6321329232) 102 mg/dL 70-110 CREATININE (test code = 2160-0) 0.69 mg/dL 0.50-1.04 CALCIUM (test code = 4647340014) 8.5 mg/dL 8.6-10.6 L eGFR (test code = 19872-5) 93.5 mL/min/1.73m2 CKD-EPI eGFR (2020). Assuming creatinine has been stable day-to-day for at least three months, the eGFR indicates Category G1 (>= 90 mL/min/1.73 m2) Lab Interpretation (test code = 08684-7) Abnormal [facility] (ALB,T.PRO,BILI T,BU/BC,ALT,AST,ALK PHOS)2025-03-05 01:55:59* Test Item Value Reference Range Interpretation Comme nts TOTAL BILI (test code = 6528079695) 0.9 mg/dL 0.1-1.1 BILI UNCON (test code = 4674535821) 0.7 mg/dL 0.1-1.1 BILI CONJ (test code = 8144575120) 0 mg/dL 0.0-0.3 T PROTEIN (test code = 9784161763) 6 g/dL 6.3-8.2 L ALBUMIN (test code = 3376405222) 3.6 g/dL 3.5-5.0 ALK PHOS (test code = 0522733163) 70 U/L 34-122 ALTv (test code = 1742-6) 15 U/L 5-35 AST(SGOT) (test code = 6617034323) 17 U/L 13-40 Lab Interpretation (test cod e = 42489-6) Abnormal [facility][id number] 01:55:09* Test Item Value Reference Range Interpretation Comments D-DIMER (test code = 7461981744) See_Comment [Automated message] The system which generated this result transmitted reference range: <0.50 ?g/mL (FEU). The reference range was not used to interpret this result as normal/abnormal. SALVATORE (test code = SALVATORE) This test may be used in conjunction with a clinical pretest probability (PTP) assessment model to exclude venous thromboembolism (VTE) in patients suspected of deep venous thrombosis (DVT) and pulmonary embolism (PE) A D-Dimer value less than 0.50 ?g/ml (FEU) has a negative predicative value of 96 to 100% (95% CI)and 97 to 100% (95% CI) as an aid in the diagnosis of deep vein thrombosis (DVT) and pulmonary embolism when there is low or moderate pretest probability of PE or DVT. D-Dimer values are expressed in initial fibrinogen equivalent units (FEU)" The assay results should be used with other information, including the clinical context, in forming a diagnosis. Lab Interpretation (test code = 40176-6) Normal [facility] with [id number] 01:42:38* Test Item Value Reference Range Interpretation Comme nts WBC (test code = 6690-2) 7.59 4.30-11.10 RBC (test code = 789-8) 3.65 3.93-5.25 L HGB (test code = 718-7) 12.4 g/dL 11.6-15.0 HCT (test code = 4544-3) 36.8 % 35.7-45.2 MCV (test code = 787-2) 100.8 fL 80.6-95.5 H MCH (test code = 785-6) 34 pg 25.9-32.8 H MCHC (test code = 786-4) 33.7 g/dL 31.6-35.1 RDW-SD (test code = 07594-7) 47.7 fL 39.0-49.9 RDW-CV (test code = 788-0) 12.8 % 12.0-15.5 PLT (test code = 777-3) 208 166-358 MPV (test code = 83486-3) 8.8 fL 9.5-12.9 L NRBC/100 WBC (test code = 9084050985) 0 0.0-10.0 NRBC x10^3 (test code = 1464611869) See_Comment [Automated messa ge] The system which generated this result transmitted reference range: 10*3/?L. The reference range was not used to interpret this result as normal/abnormal. GRAN MAT (NEUT) % (test code = 770-8) 73.7 % IMM GRAN % (test code = 3734853453) 0.1 % LYMPH % (test code = 736-9) 15.5 % MONO % (test code = 5905-5) 9.2 % EOS % (test code = 713-8) 1.1 % BASO % (test code = 706-2) 0.4 % GRAN MAT x10^3(ANC) (test code = 9363147970) 5.59 10*3/uL 1.88-7.09 IMM GRAN x10^3 (test code = 5061485183) 0.00-0.06 LYMPH x10^3 (test code = 731-0) 1.18 10*3/uL 1.32-3.29 L MONO x10^3 (test code = 742-7) 0.7 10*3/uL 0.33-0.92 EOS x10^3 (test code = 711-2) 0.08 10*3/uL 0.03-0.39 BASO x10^3 (test code = 704-7) 0.03 10*3/uL 0.01-0.07 Lab Interpretation (test code = 83756-5) Abnormal [facility] virus A and B and SARS-CoV+SARS-CoV-2 (COVID-19) Ag panel - Upper respiratory specimen byRapid [id number] 15:48:00* Test Item Value Reference Range Interpretation Comme nts COVID (test code = COVID) negative FLU A (test code = FLU A) negative FLU B (test code = FLU B) negative [facility] B and SARS-CoV+SARS-CoV-2 (COVID-19) Ag panel - Upper respiratory specimen byRapid [id number] 10:21:00* Test Item Value Reference Range Interpretation Comme nts COVID (test code = COVID) negative FLU A (test code = FLU A) negative FLU B (test code = FLU B) negative [facility] Ag [Presence] in Respiratory system specimen by Rapid [id number] 11:06:00* Test Item Value Reference Range Interpretation Comme nts SARS CoV 2 (test code = SARS CoV 2) negative [facility], [id number] 10:05:00 * Test Item Value Reference Range Interpretation Comme nts Strep (test code = Strep) negative [facility] ([facility]+B[facility]2024-06-18 10:44:00* Test Item Value Reference Range Interpretation Comme nts FLU A (test code = FLU A) negative FLU B (test code = FLU B) negative [facility], [id number] 10:44:00 * Test Item Value Reference Range Interpretation Comme nts Strep (test code = Strep) negative [facility] Ag [Presence] in Respiratory system specimen by Rapid [id number] 10:43:00* Test Item Value Reference Range Interpretation Comme nts SARS CoV 2 (test code = SARS CoV 2) negative [facility] Notes Date/Time Note Provider Source 2025-03-04 23:39:29 Awake, alert oriented X4, respiratory even and unlabored,skin w/d color appropriate for race, moves all ext well, pt encouraged to follow up with pcp and or return as needed. Pt given printed and verbal discharge instructions regarding shortness of breath, fever in adult, viral upper respiratory infection, and acute cystitis without hematuria. Patient verbalized understanding and signature obtained, patient denies any other concerns. Prescriptions provided. Discussed antibiotic therapy and to take until all completed unless adverse reaction occurs - if occurs, discontinue medication and follow up with pcp/seek medical attention. Discussed Robitussin Guaifenesin/ Codeine side affects and to avoid driving/operating machinery/or engaging in activities requiring alertness while taking. Advised to seek medical attention for new/prolonged/worsening of symptoms. No adverse reaction to meds given in ER noted upon discharge. Pt taken to private vehicle via wheelchair by this RN. Mi Zee RN [facility] 2025-03-04 19:58:54 Patient arrived ambulatory to ED with family with assist x2 c/o lethargic, fever, intermittent SOB, and coughing up green phlegm. Has been going on for about three days. Hx of COPD does smoke. Family has been sick at home. Last medication taken at home was around 1400 - Vicks daytime cold. 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 Symptoms consist of cough which is productive of greenish phlegm, SOB and fever. Also reports wheezing. No chest pain. Pt has taken Duoneb, Vicks and Dayquill without relief of symptoms. Daughter, Grand daughter and great grand son at ime with similar symptoms biut none has seen a medical provider. Pt smokes 1/2 PPD. No calf pain/tenderness/swelling. No leg edema History provided by: Patient, medical records and relative station worker used: No Shortness of Breath Severity: Moderate Onset quality: Gradual Duration: 3 days Timing: Sporadic Progression: Worsening Chronicity: New Context: URI Context: not activity Relieved by: Nothing Worsened by: Nothing Ineffective treatments: Inhaler Associated symptoms: cough, fever, headaches, sputum production and wheezing Associated symptoms: no abdominal pain, no chest pain, no claudication, no diaphoresis, no ear pain, no hemoptysis, no neck pain, no PND, no rash, no sore throat, no syncope, no swollen glands and no vomiting Risk factors: hx of PE/DVT and tobacco use Risk factors: no hx of cancer, no obesity, no prolonged immobilization and no recent surgery Past Medical History/Immunizations: Atrial Fib DMT2 Diverticuliotis Osteoporosis COPD Asthma HTN Pulmonary Embolism TIA Tetanus received in last 5 years: Unknown Allergies: Allergies Allergen Reactions Latex Hives Pcn [Penicillins] Anaphylaxis Past Social History: Substance & Sexual Activity No substance use or sexual activity history on file. Past Surgical History: Right Hip Replacement OU Cataract BTL Review of Systems: Review of Systems Constitutional: Positive for chills, fatigue and fever. Negative for diaphoresis. HENT: Negative. Negative for ear pain and sore throat. Eyes: Negative. Respiratory: Positive for cough, sputum production, shortness of breath and wheezing. Negative for hemoptysis. Breasts: Negative. Cardiovascular: Negative. Negative for chest pain, claudication, syncope and PND. Gastrointestinal: Negative. Negative for abdominal pain and vomiting. Genitourinary: Negative. Musculoskeletal: Negative. Negative for neck pain. Skin: Negative. Negative for rash. Neurological: Positive for headaches. Psychiatric/Behavioral: Negative. All other systems reviewed and are negative. Endocrine: Endocrine negative Physical Exam: Physical Exam ED Triage Vitals [03/04/252001] Weight 59.9 kg (132 lb) Actual or estimated Estimated by patient/family report Height 1.549 m (5' 1") BP 133/78 Pulse 68 Resp 18 Temp 36.8 ?C (98.2 ?F) Temp source Oral SpO2 93 % Measured on Room air Physical Exam Vitals and nursing note reviewed. Constitutional: General: She is not in acute distress. Appearance: Normal appearance. She is well-developed and normal weight. She is not ill-appearing, toxic-appearing or diaphoretic. HENT: Head: Normocephalic and atraumatic. Nose: Nose normal. Mouth/Throat: Mouth: Mucous membranes are moist. Pharynx: Oropharynx is clear. No oropharyngeal exudate or posterior oropharyngeal erythema. Eyes: General: No scleral icterus. Right eye: No discharge. Left eye: No discharge. Extraocular Movements: Extraocular movements intact. Conjunctiva/sclera: Conjunctivae normal. Pupils: Pupils are equal, round, and reactive to light. Neck: Thyroid: No thyromegaly. Cardiovascular: Rate and Rhythm: Normal rate and regular rhythm. Pulses: Normal pulses. Heart sounds: Normal heart sounds. No murmur heard. Pulmonary: Effort: Pulmonary effort is normal. No respiratory distress. Breath sounds: No stridor. Wheezing and rhonchi present. No rales. Chest: Chest wall: No tenderness. Abdominal: General: Bowel sounds are normal. There is no distension. Palpations: Abdomen is soft. There is no mass. Tenderness: There is no abdominal tenderness. There is no right CVA tenderness, left CVA tenderness, guarding or rebound. Hernia: No hernia is present. Musculoskeletal: General: No swelling, tenderness, deformity or signs of injury. Normal range of motion. Cervical back: Normal range of motion and neck supple. No rigidity or tenderness. Right lower leg: No edema. Left lower leg: No edema. Lymphadenopathy: Cervical: No cervical adenopathy. Skin: General: Skin is warm and dry. Capillary Refill: Capillary refill takes less than 2 seconds. Coloration: Skin is not jaundiced or pale. Findings: No bruising, erythema, lesion or rash. Neurological: General: No focal deficit present. Mental Status: She is alert and oriented to person, place, and time. Cranial Nerves: No cranial nerve deficit. Sensory: No sensory deficit. Motor: No weakness or abnormal muscle tone. Coordination: Coordination normal. Gait: Gait normal. Deep Tendon Reflexes: Reflexes normal. Psychiatric: Behavior: Behavior normal. Thought Content: Thought content normal. Judgment: Judgment normal. Radiology: Chest 1 View Final Result EXAMINATION: XR CHEST 1 VW, 03/04/2025 9:05 PM ORDERING PHYSICIAN: MIGUEL HAWKINS HISTORY: fever, cough COMPARISON(S): None. TECHNIQUE: Portable AP view FINDINGS: Support Devices: External monitoring leads. Lungs/Pleura: Lungs are clear. No pleural effusion or pneumothorax. Heart/Mediastinum: Cardiac silhouette is normal. Calcification of the thoracic aorta. Bones/Soft Tissues: Degenerative changes of the shoulders and spine. Upper Abdomen: Unremarkable. IMPRESSION No evidence for acute cardiopulmonary disease. End of report Lab Results: Lab Results CBC WITH DIFF - Abnormal Result Value Ref Range WBC 7.59 4.30 - 11.10 10*3/?L RBC 3.65 (*) 3.93 - 5.25 10*6/?L HGB 12.4 11.6 - 15.0 g/dL HCT 36.8 35.7 - 45.2 % MCV 100.8 (*) 80.6 - 95.5 fL MCH 34.0 (*) 25.9 - 32.8 pg MCHC 33.7 31.6 - 35.1 g/dL RDW-SD 47.7 39.0 - 49.9 fL RDW-CV 12.8 12.0 - 15.5 % PLT 208 166 - 358 10*3/?L MPV 8.8 (*) 9.5 - 12.9 fL NRBC/100 WBC 0.0 0.0 - 10.0 /100 WBCs NRBC x10 3 <0.01 10*3/?L GRAN MAT (NEUT) % 73.7 % IMM GRAN % 0.10 % LYMPH % 15.5 % MONO % 9.2 % EOS % 1.1 % BASO % 0.4 % GRAN MAT x10 3 (ANC) 5.59 1.88 - 7.09 10*3/uL IMM GRAN x10 3 <0.03 0.00 - 0.06 10*3/uL LYMPH x10 3 1.18 (*) 1.32 - 3.29 10*3/uL MONO x10 3 0.70 0.33 - 0.92 10*3/uL EOS x10 3 0.08 0.03 - 0.39 10*3/uL BASO x10 3 0.03 0.01 - 0.07 10*3/uL BASIC METABOLIC PANEL (NA, K, CL, CO2, GLUCOSE, BUN, CREATININE, CA) - Abnormal NA 136 135 - 145 mmol/L K 3.5 3.5 - 5.0 mmol/L CL 104 98 - 108 mmol/L CO2 TOTAL 26 23 - 31 mmol/L AGAP 6 2 - 16 BUN 12 7 - 23 mg/dL GLUCOSE 102 70 - 110 mg/dL CREATININE 0.69 0.50 - 1.04 mg/dL CALCIUM 8.5 (*) 8.6 - 10.6 mg/dL eGFR 93.5 mL/min/1.73m2 HEPATIC FUNCTION PANEL (06414) (ALB,T.PRO,BILI T,BU/BC,ALT,AST,ALK PHOS) - Abnormal TOTAL BILI 0.9 0.1 - 1.1 mg/dL BILI UNCON 0.7 0.1 - 1.1 mg/dL BILI CONJ 0.0 0.0 - 0.3 mg/dL T PROTEIN 6.0 (*) 6.3 - 8.2 g/dL ALBUMIN 3.6 3.5 - 5.0 g/dL ALK PHOS 70 34 - 122 U/L ALTv 15 5 - 35 U/L AST(SGOT) 17 13 - 40 U/L N-TERMINAL PRO-BNP - Abnormal NT-proBNP 565 <=125 pg/mL URINALYSIS - Abnormal APPEARANCE Slightly Cloudy (*) Clear COLOR Bhumi (*) Yellow PH 5.0 4.8 - 8.0 SP GRAVITY 1.028 1.003 - 1.030 GLU U QUAL Normal Normal BLOOD 1+ (*) Negative KETONES 5 mg/dL (*) Negative PROTEIN 30 mg/dL (*) Negative UROBILIN 4.0 mg/dL (*) Normal BILIRUBIN 2 mg/dL (*) Negative NITRITE Negative Negative LEUK RADHA 75/uL (*) Negative RBC/HPF 43 (*) 0 - 3 HPF WBC/HPF 13 (*) 0 - 5 HPF BACTERIA Few (*) Negative MUCOUS Moderate (*) Negative LPF SQ EPITH 4 HPF INFLUENZA A/B RSV COVID NAAT - Normal Influenza A NAAT Negative Negative Influenza B NAAT Negative Negative RSV by PCR Negative Negative SARS-CoV-2 NAAT Negative Negative D-DIMER - Normal D-DIMER <0.21 <0.50 ?g/mL (FEU) TROPONIN I - Normal TROPONIN I 0.003 <=0.034 ng/mL Orders and Treatments: Orders Placed This Encounter Procedures Chest 1 View CBC with Differential Basic Metabilic Panel (NA, K, CL, CO2, GLUCOSE, BUN, CREATININE, CA) Hepatic Function Panel (ALB,T.PRO,BILI T,BU/BC,ALT,AST,ALK PHOS) Influenza A B RSV COVID NAAT D-Dimer Troponin I N-Terminal Pro-Bnp Urinalysis Nasal Cannula Orders Placed This Encounter Medications NaCl 0.9% (NS) injection 5 mL ketorolac (TORADOL) injection 15 mg codeine-guaifenesin (ROBITUSSIN AC) 10-100 mg/5 mL oral solution 10 mL levoFLOXacin (LEVAQUIN) tablet 500 mg codeine-guaifenesin 10-100 mg/5 mL oral solution levoFLOXacin 500 mg tablet First Provider Eval: ED Events Date/Time Event User Comments 03/04/252010 Medical Screening Begins MIGUEL HAWKINS MD S -- 03/04/252010 First Provider Evaluation MIGUEL HAWKINS MD -- ED COURSE Diagnosis/Impression as of 03/04/25 2324 SOB (shortness of breath) Fever in adult Viral upper respiratory infection Acute cystitis without hematuria Results Procedures: EKG-12 Lead ROUTINE ONCE Date/Time: 03/04/2025 8:12 PM Performed by: Miguel Hawkins MD Authorized by: Miguel Hawkins MD ECG interpreted by ED Physician in the absence of a fur tailor: yes Previous ECG: Previous ECG: Unavailable Interpretation: Interpretation: normal Rate: ECG rate: 64 ECG rate assessment: normal Rhythm: Rhythm: sinus rhythm Ectopy: Ectopy: none QRS: QRS axis: Normal QRS intervals: Normal QRS conduction: RBBB ST segments: ST segments: Normal T waves: T waves: normal Q waves: Abnormal Q-waves: not present MDM: Assessment & Plan Medical Decision Making Niki Carrasquillo is a 70 year old female who presents to the ED for evaluation of URI symptoms X 3 days Problems Addressed: Acute cystitis without hematuria: acute illness or injury Details: Abx administered in the ED Will prescribe additional abx for same Fever in adult: acute illness or injury SOB (shortness of breath): acute illness or injury Viral upper respiratory infection: acute illness or injury Details: Symptomatic treatment Amount and/or Complexity of Data Reviewed Labs: ordered. Decision-making details documented in ED Course. Radiology: ordered and independent interpretation performed. Decision-making details documented in ED Course. ECG/medicine tests: ordered and independent interpretation performed. Decision-making details documented in ED Course. Risk OTC drugs. Prescription drug management. Flowsheet Documentation: Scoring Tools: No data recorded Disposition/Condition: ED Disposition ED Disposition Discharge Condition Stable Comment -- Discharge Medications: Patient's Medications START taking these medications CODEINE-GUAIFENESIN 10-100 MG/5 ML ORAL SOLUTION Take 5 mL by mouth every 6 hours as needed for Cough for up to 7 days. Indications: COUGH LEVOFLOXACIN 500 MG TABLET Take 1 tablet by mouth every 24 hours. CONTINUE taking these medications which have NOT CHANGED No medications on file START taking Modified Medications as Prescribed No medications on file STOP taking these medications No medications on file Follow-up: Contact information for follow-up Kelly Rodriguez Relationship: PCP - [address] Carlee Martínez [address] [address] Electronically signed by: Miguel Hawkins MD 03/04/25 1145 [facility]
[2025-07-08] MEDS ORDERED: NA CHLORIDE 0.9% 1,000 ML ONE (09:58)
[2025-07-08] MEDS ORDERED: FOLIC ACID 5 MG/ML VIAL ONE (09:58)
[2025-07-08 09:59] LABS: Absolute Lymphocytes (CBC) 1.3 K/uL (0.7-4.9); Hematocrit 41.2 % (36.0-45.0); Hemoglobin 13.7 g/dL (12.0-15.0); MCH 32.3 pg (27.0-35.0); MCHC 33.2 g/dL (32.0-36.0); MCV 97.3 fL (80-100); MPV 6.4 fL (7.6-11.3); Nucleated RBC Absolute Count 0.0 (0-0); Nucleated Red Blood Cells % 0.0 % (0-0); RBC Red Blood Cell Count 4.24 M/uL (3.86-4.86); White Blood Count 7.50 thou/uL (4.3-10.9)
[2025-07-08 10:05] LABS: PT Prothrombin Time 12.6 SECONDS (10-13.0); Protime INR 1.12
[2025-07-08 10:21] LABS: ALT/SGPT 21.0 U/L (13-56); AST/SGOT 20.0 U/L (15-37); Albumin 3.3 g/dL (3.4-5.0); Albumin/Globulin Ratio 1.3 (1.1-1.8); Alkaline Phosphatase 69.0 U/L (45-117); Anion Gap 9.0 mEq/L (5.0-15.0); BUN Blood Urea Nitrogen 11.0 mg/dL (7-18); Bilirubin Indirect, Calculated 0.5 mg/dL (0.2-0.8); Globulin 2.5 g/dL (2.3-3.5); Glucose Level 103.0 mg/dL (74-106); Magnesium 1.7 mg/dL (1.6-2.4); NT PRO-BNP 82.0 pg/mL (<125); Potassium 3.0 mEq/L (3.5-5.1); Troponin High Sensitivity 8.6 pg/mL (<58.9)
--- NOTE | 2025-07-08 10:50 | RAD REPORT ---
EXAM: CT brain without contrast HISTORY: Syncope COMPARISON: 2018 TECHNIQUE: Multiple contiguous axial images were obtained and a CT of the brain without contrast.. Sagittal and coronal reconstruction performed. Automated exposure control, adjustment of the mA and/or kV according to patient size, and/or iterative reconstruction. Unless otherwise specified, incidental f indings do not require dedicated imaging follow-up FINDINGS: An intracranial bleed is not seen Ventricles are normal caliber No extra-axial fluid collection noted No significant hypodensity within the brain No fluid within the visualized sinuses or mastoids noted. IMPRESSION: No acute intracranial abnormality noted. If the patient continues to have symptoms to suggest an acute intracranial abnormality then MRI of th e brain would be recommended.
--- NOTE | 2025-07-08 10:59 | RAD REPORT ---
EXAMINATION: CTA HEAD CLINICAL INDICATION: Syncope TECHNIQUE: Axial CT images were obtained through the head after 100 cc Isovue-370 intravenous contras t utilizing angiographic protocol with 3D post-processing (maximum intensity projection images, volume rendered images and/or shaded surface rendered images). One or more of the following dose red uction techniques were used: Automated exposure control, adjustment of the mA and/or kV according to patient size, and/or iterative reconstruction. Unless otherwise specified, incidental findings do not require dedicated imaging follow-up. COMPARISON: None FINDINGS: Distal internal carotid, basilar, anterior cerebral, middle cerebral and posterior cerebral arteries do not demonstrate a significant stenosis An aneurysm not noted. No large vessel occlusion IMPRESSION: No acute vascular abnormality displayed
--- NOTE | 2025-07-08 11:00 | RAD REPORT ---
EXAMINATION: Neck Angio CLINICAL INDICATION: Syncope TECHNIQUE: Axial CT images were obtained from the aortic arch to the skull base after intravenous adm inistration of 100 cc Isovue-370 utilizing angiographic protocol. Multiplanar reformats, as well as 3D post-processing (maximum intensity projection images, volume rendered images and/or shaded surface rendered images) were generated and reviewed. One or more of the following dose reduction techniques were used: Automated exposure control, adjustment of the mA and/or kV according to patient size, and/or iterative reconstruction. Unless otherwise specified, incidental findings do not require dedicated imaging follow-up. COMPARISON: No prior exam. FINDINGS: The visualized aortic arch and great vessels do not demonstrate a significant abnormality Calcified and noncalcified plaque proximal right internal carotid artery is severe. Common carotid, left internal carotid and external carotid arteries demonstrate mild plaque. Vertebral arteries unremarkable No dissection Methods for NASCET criteria: Mild stenosis, 0% to 49%; Moderate stenosis 50% to 69%; Severe stenosis, 70% to 99% IMPRESSION: Marked plaque proximal right internal carotid artery which results in a severe stenosis estimated 90%
--- NOTE | 2025-07-08 11:07 | RAD REPORT ---
Procedure: Chest Single View HISTORY: Cough COMPARISON: none FINDINGS: The lungs appear clear of acute infiltrate. No significant pleural effusion noted. The heart is normal size. IMPRESSION: No acute abnormality is displayed.
[2025-07-08 12:10] LABS: Urine Microscopic Reflex YN NO UMIC
[2025-07-08] MEDS ORDERED: POTASSIUM 25 MEQ EFFERV TAB ONE (13:09)
--- NOTE | 2025-07-08 13:16 | ER ---
Nurse's Notes [facility] Name: Niki Carrasquillo Age: 70 yrs Sex: Female : 1955 Arrival Date: 07/08/2025 Time: 09:29 Bed 20 Private MD: Diagnosis: Syncope Near;Hypokalemia;Occlusion and stenosis of unspecified carotid artery-RIGHT SEVERE DISEASE Presentation: 07/08 09:33 Chief complaint: Pt's granddaughter reports 2 syncopal episodes today. Reports blockage aa5 to carotid artery and is scheduled for procedure with Dr. Ruiz. Reports episodes of dizziness and blurry vision x 1 year but worse today. 09:33 Coronavirus screen: At this time, the client does not indicate any symptoms associated aa5 with coronavirus-19. Ebola Screen: Patient denies travel to an Ebola-affected area in the 21 days before illness onset. Initial Sepsis Screen: Does the patient meet any 2 criteria? No. Patient's initial sepsis screen is negative. Does the patient have a suspected source of infection? No. Patient's initial sepsis screen is negative. Risk Assessment: Do you want to hurt yourself or someone else? Patient reports no desire to harm self or others. Onset of symptoms was July 08, 2025. 09:33 Acuity: SARAH 2 aa5 09:33 Method Of Arrival: Wheelchair aa5 Historical: - Allergies: 09:45 PENICILLINS; aa5 09:45 Codeine; aa5 09:45 Latex, Natural Rubber; aa5 - PMHx: 09:45 Atrial Fib; COPD; Diabetes - NIDDM; Hypertension; aa5 - Immunization history:: Adult Immunizations unknown. - Infectious Disease History:: Denies. - Social history:: Smoking status: Patient reports the use of cigarette tobacco products. Screenin:16 [facility] ED Fall Risk Assessment (Adult) History of falling in the last 3 months, zm including since admission Yes- fall prone (multiple falls) (3 pts) Confusion or Disorientation No (0 pts) Intoxicated or Sedated No (0 pts) Impaired Gait No (0 pts) Mobility Assist Device Used No (0 pt) Altered Elimination No (0 pt) Score/Fall Risk Level 3 or more points = High Risk Oriented to surroundings, Maintained a safe environment, Educated pt \T\ family on fall prevention, incl call for assistance when getting out of bed, Assessed \T\ reinforced patient's understanding of fall precautions, Hourly rounding (assess needs \T\ fall precautionary measures) done, Used ambulatory aids as needed (educated on \T\ assisted with), Used gait belt as appropriate Implemented a Fall Risk Plan of Care, Remained w/in arm's length of patient and in sight while toileting, Offered frequent toileting (1:1 observation), Remained with patient while ambulating, Utilized family, sitter, or virtual dispatcher relay as indicated. Abuse screen: Denies threats or abuse. Denies injuries from another. Nutritional screening: No deficits noted. Tuberculosis screening: No symptoms or risk factors identified. Assessment: 09:45 General: Appears in no apparent distress. uncomfortable, Behavior is calm, cooperative. zm Pain: Denies pain. 09:45 Neuro: Level of Consciousness is awake, alert, obeys commands, Oriented to person, zm place, time, situation. Neuro: Reports a syncopal episode. Cardiovascular: Heart tones S1 S2 present Patient's skin is warm and dry. Respiratory: Airway is patent Respiratory effort is even, unlabored, Respiratory pattern is regular, symmetrical. 11:05 Reassessment: Patient appears in no apparent distress at this time. Patient and/or zm family updated on plan of care and expected duration. Pain level reassessed. Patient is alert, oriented x 3, equal unlabored respirations, skin warm/dry/pink. Patient denies pain at this time. Patient states feeling better. 12:01 Reassessment: Patient appears in no apparent distress at this time. Patient and/or zm family updated on plan of care and expected duration. Pain level reassessed. Patient is alert, oriented x 3, equal unlabored respirations, skin warm/dry/pink. Patient denies pain at this time. 13:15 Reassessment: Patient and/or family updated on plan of care and expected duration. Pain kb4 level reassessed. Patient is alert, oriented x 3, equal unlabored respirations, skin warm/dry/pink. Vital Signs: 09:33 BP 129 / 86; Pulse 60; Resp 16 S; Temp 98(TE); Pulse Ox 96% on R/A; Weight 58.51 kg aa5 (R); Height 5 ft. 4 in. (R); 11:06 BP 151 / 84; Pulse 64; Resp 15; Temp 98.4; Pulse Ox 100% on R/A; Pain 0/10; zm 12:01 BP 130 / 87; Pulse 65; Resp 20; Temp 98.4; Pulse Ox 98% on R/A; Pain 0/10; zm 13:27 BP 156 / 86; Pulse 69; Resp 18; Pulse Ox 96% on R/A; kb4 09:33 Body Mass Index 22.14 (58.51 kg, 162.56 cm) aa5 11:06 Pain Scale: Adult zm 12:01 Pain Scale: Adult zm Elen Coma Score: 11:06 Eye Response: spontaneous(4). Motor Response: obeys commands(6). Verbal Response: zm oriented(5). Total: 15. 12:01 Eye Response: spontaneous(4). Motor Response: obeys commands(6). Verbal Response: zm oriented(5). Total: 15. NIH Stroke Scale Scores: 13:12 NIHSS Score: 0 [facility] ED Course: 09:31 Patient arrived in ED. mr 09:33 Arm band placed on Patient placed in an exam room, on a stretcher. aa5 09:44 Fabio Gerber MD is Attending Physician. [facility] 09:44 Triage completed. [facility] 09:45 Patient has correct armband on for positive identification. Placed in gown. Bed in low zm position. Call light in reach. Side rails up X2. Adult w/ patient. 09:45 Provided Education on: call light use. Client placed on continuous cardiac and pulse zm oximetry monitoring. NIBP monitoring applied. cafeteria monitor on. Door closed. Noise minimized. Lights dimmed. Warm blanket given. Verbal reassurance given. 09:52 Initial lab(s) drawn, by oh, sent to lab. 09:52 Inserted saline lock: 18 gauge in right wrist, using aseptic technique. Blood zm collected. Flushed with 10 mL NS. 10:13 Linsey Mckeon, RN is Primary Nurse. zm 10:14 Basic Metabolic Panel Sent. zm 10:14 LFT's Sent. zm 10:14 Magnesium Sent. zm 10:14 NT PRO-BNP Sent. zm 10:14 Troponin HS Sent. zm 10:22 EKG done, by ED staff, reviewed by Fabio Gerber MD. zm 10:26 XRAY Chest (1 view) In Process Unspecified. EDMS 10:33 CT Head Brain wo Cont In Process Unspecified. EDMS 10:33 CT Head Angio In Process Unspecified. EDMS 10:33 CT Neck Angio In Process Unspecified. EDMS 13:26 No provider procedures requiring assistance completed. Patient did not have IV access kb4 during this emergency room visit. 13:26 IV discontinued, intact, bleeding controlled, No redness/swelling at site. Pressure kb4 dressing applied. Administered Medications: 10:13 Drug: NS 0.9% IV 1000 ml IV at 1000 ml once; to be given as a bolus over 60 minutes Route: IV; Rate: 1000 ml; Site: right wrist; 10:13 Drug: foLIC Acid IVPB 1 mg IVPB once Route: IVPB; Site: right wrist; 12:47 CANCELLED (Duplicate Order): TNK FOR STROKE - tenecteplase(administer 10 ml ns porter flush before and after tenecteplase) 15 mg IV at per protocol once; 0.25mg/kg, MAX DOSE 25 mg, IVP over 5 seconds 13:12 Drug: Potassium PO Effervescent Tablet 50 mEq PO once; dissolve in 4 ounces of water or kb4 juice Route: PO; 13:18 Follow up: Response: No adverse reaction kb4 Medication: 10:16 VIS not applicable for this client. Outcome: 13:16 Discharge ordered by . porter 13:26 Discharged to home ambulatory, [facility] 13:26 Condition: good 13:26 Discharge instructions given to patient, family, Instructed on discharge instructions, follow up and referral plans. medication usage, Demonstrated understanding of instructions, follow-up care, medications, Prescriptions given X 2, 13:29 Patient left the ED. kb4 NIH Stroke Scale - NIH Stroke Score Date: 07/08/2025 Time: 13:12 Total Score = 0 10. Dysarthria (speech clarity - read or repeat words) - 0(Normal) 11. Extinction and Inattention (visual/tactile/auditory/spatial/personal) - 0(No abnormality) 1a. Level of Consciousness (LOC) - 0(Alert) 1b. Level of Consciousness (LOC) (Month \T\ Age) - 0(Both) 1c. LOC Commands (Open \T\ Closes Eyes/Electric Hoist Operator) - 0(Both) 2. Best Gaze (Lateral Gaze Paresis) - 0(Normal) 3. Visual Field Loss - 0(No visual loss) 4. Facial Palsy - 0(Normal) 5a. Left Arm: Motor (10-second hold) - 0(No drift) 5b. Right Arm: Motor (10-second hold) - 0(No drift) 6a. Left Leg: Motor (5-second hold - always test supine) - 0(No drift) 6b. Right Leg: Motor (5-second hold - always test supine) - 0(No drift) 7. Limb Ataxia (finger/nose \T\ heel/villela - test with eyes open) - 0(Absent) 8. Sensory Loss (pinprick arms/legs/face) - 0(Normal) 9. Best Language: Aphasia (description/naming/reading) - 0(No aphasia) Initials: porter Signatures: Dispatcher [employer] EDMS Fabio Gerber MD MD cha Rivera, Mary, Nahum Sidhu mr HerreraAlma, RN RN [email or web address] Linsey Mckeon, Sherly Garber RN RN RN kb4 Corrections: (The following items were deleted from the chart) 09:48 09:33 58.51 kg Reported; Height 5 ft. 4 in. Reported; BMI: 22.1; aa5 aa5 10:18 10:16 [facility] ED Fall Risk Assessment (Adult) History of falling in the last 3 zm months, including since admission No falls in past 3 months (0 pts) Confusion or Disorientation No (0 pts) Intoxicated or Sedated No (0 pts) Impaired Gait No (0 pts) Mobility Assist Device Used No (0 pt) Altered Elimination No (0 pt) Score/Fall Risk Level 0 - 2 = Low Risk Oriented to surroundings, Maintained a safe environment, Educated pt \T\ family on fall prevention, incl call for assistance when getting out of bed, Assessed \T\ reinforced patient's understanding of fall precautions, Hourly rounding (assess needs \T\ fall precautionary measures) done, Used ambulatory aids as needed (educated on \T\ assisted with), Used gait belt as appropriate
--- NOTE | 2025-07-08 13:16 | EDPHYS ---
Physician Documentation [facility] Name: Niki Carrasquillo Age: 70 yrs Sex: Female : 1955 Arrival Date: 07/08/2025 Time: 09:29 Bed 20 Private MD: SHARON Physician Fabio Gerber HPI: 07/08 13:05 This 70 yrs old Female presents to ER via Wheelchair with complaints of porter Passed Out Prior To Arrival, Vision Problem, Dizziness. 13:05 The patient has experienced syncope, The patient has experienced near-syncope. Onset: porter The symptoms/episode began/occurred suddenly. Duration: The patient has had multiple episodes, that last 15 second(s). Historical: - Allergies: 09:45 PENICILLINS; aa5 09:45 Codeine; aa5 09:45 Latex, Natural Rubber; aa5 - PMHx: 09:45 Atrial Fib; COPD; Diabetes - NIDDM; Hypertension; aa5 - Immunization history:: Adult Immunizations unknown. - Infectious Disease History:: Denies. - Social history:: Smoking status: Patient reports the use of cigarette tobacco products. ROS: 13:12 Constitutional: Negative for fever, chills, and weight loss, Eyes: Negative for injury, porter pain, redness, and discharge, ENT: Negative for injury, pain, and discharge, Neck: Negative for injury, pain, and swelling, Cardiovascular: Negative for chest pain, palpitations, and edema, Respiratory: Negative for shortness of breath, cough, wheezing, and pleuritic chest pain, Abdomen/GI: Negative for abdominal pain, nausea, vomiting, diarrhea, and constipation, Back: Negative for injury and pain, : Negative for injury, bleeding, discharge, and swelling, MS/Extremity: Negative for injury and deformity, Skin: Negative for injury, rash, and discoloration, Psych: Negative for depression, anxiety, suicide ideation, homicidal ideation, and hallucinations, Allergy/Immunology: Negative for hives, rash, and allergies, Endocrine: Negative for neck swelling, polydipsia, polyuria, polyphagia, and marked weight changes, Hematologic/Lymphatic: Negative for swollen nodes, abnormal bleeding, and unusual bruising, 13:12 Neuro: Positive for syncope, Exam: 13:12 Constitutional: This is a well developed, well nourished patient who is awake, alert, porter and in no acute distress. Head/Face: Normocephalic, atraumatic. Eyes: Pupils equal round and reactive to light, extra-ocular motions intact. Lids and lashes normal. Conjunctiva and sclera are non-icteric and not injected. Cornea within normal limits. Periorbital areas with no swelling, redness, or edema. ENT: Nares patent. No nasal discharge, no septal abnormalities noted. Tympanic membranes are normal and external auditory canals are clear. Oropharynx with no redness, swelling, or masses, exudates, or evidence of obstruction, uvula midline. Mucous membranes moist. Neck: Trachea midline, no thyromegaly or masses palpated, and no cervical lymphadenopathy. Supple, full range of motion without nuchal rigidity, or vertebral point tenderness. No Meningismus. Chest/axilla: Normal chest wall appearance and motion. Nontender with no deformity. No lesions are appreciated. Cardiovascular: Regular rate and rhythm with a normal S1 and S2. No gallops, murmurs, or rubs. Normal PMI, no JVD. No pulse deficits. Respiratory: Lungs have equal breath sounds bilaterally, clear to auscultation and percussion. No rales, rhonchi or wheezes noted. No increased work of breathing, no retractions or nasal flaring. Abdomen/GI: Soft, non-tender, with normal bowel sounds. No distension or tympany. No guarding or rebound. No evidence of tenderness throughout. Back: No spinal tenderness. No costovertebral tenderness. Full range of motion. Female : Normal external genitalia. Skin: Warm, dry with normal turgor. Normal color with no rashes, no lesions, and no evidence of cellulitis. MS/ Extremity: Pulses equal, no cyanosis. Neurovascular intact. Full, normal range of motion., bilateral aka Neuro: Awake and alert, GCS 15, oriented to person, place, time, and situation. Cranial nerves II-XII grossly intact. Motor strength 5/5 in all extremities. Sensory grossly intact. Cerebellar exam normal. Normal gait. Psych: Awake, alert, with orientation to person, place and time. Behavior, mood, and affect are within normal limits. 13:12 ECG was reviewed by the Attending Physician. Vital Signs: 09:33 BP 129 / 86; Pulse 60; Resp 16 S; Temp 98(TE); Pulse Ox 96% on R/A; Weight 58.51 kg aa5 (R); Height 5 ft. 4 in. (R); 11:06 BP 151 / 84; Pulse 64; Resp 15; Temp 98.4; Pulse Ox 100% on R/A; Pain 0/10; zm 12:01 BP 130 / 87; Pulse 65; Resp 20; Temp 98.4; Pulse Ox 98% on R/A; Pain 0/10; zm 13:27 BP 156 / 86; Pulse 69; Resp 18; Pulse Ox 96% on R/A; kb4 09:33 Body Mass Index 22.14 (58.51 kg, 162.56 cm) aa5 11:06 Pain Scale: Adult zm 12:01 Pain Scale: Adult zm NIH Stroke Scale Scores: 13:12 NIHSS Score: 0 porter [employer] Coma Score: 11:06 Eye Response: spontaneous(4). Motor Response: obeys commands(6). Verbal Response: zm oriented(5). Total: 15. 12:01 Eye Response: spontaneous(4). Motor Response: obeys commands(6). Verbal Response: zm oriented(5). Total: 15. MDM: 09:44 Medical Screening Exam initiated porter 13:13 Differential Diagnosis: aortic aneurysm, cardiac arrhythmia, cerebrovascular accident, porter drug effect, emotional response, GI bleed, idiopathic syncope, pseudo seizure, seizure, sepsis, transient ischemic attack, vasovagal episode. Data reviewed: vital signs, nurses notes, lab test result(s), EKG, radiologic studies, CT scan, plain films. Consideration of Admission/Observation Escalation of care including admission/observation considered. I considered the following discharge prescriptions or medication management in the emergency department Medications were administered in the Emergency Department. See MAR. ED course: DW DR MCCLELLAND , NO CHANGES, [facility] 07/08 09:47 Order name: Basic Metabolic Panel; Complete Time: 12:18 porter 07/08 09:47 Order name: CBC with Diff; Complete Time: 12:18 porter 07/08 09:47 Order name: LFT's; Complete Time: 12:18 porter 07/08 09:47 Order name: Magnesium; Complete Time: 12:18 porter 07/08 09:47 Order name: NT PRO-BNP; Complete Time: 12:18 porter 07/08 09:47 Order name: PT-INR; Complete Time: 12:18 [facility] 07/08 09:47 Order name: Troponin HS; Complete Time: 12:18 [facility] 07/08 09:47 Order name: UA Rfx Jaron Cult if indicated; Complete Time: 12:18 [facility] 07/08 09:47 Order name: XRAY Chest (1 view); Complete Time: 12:18 [facility] 07/08 09:47 Order name: CT Head Brain wo Cont; Complete Time: 12:18 [facility] 07/08 09:47 Order name: CT Head Angio; Complete Time: 12:18 [facility] 07/08 09:47 Order name: CT Neck Angio; Complete Time: 12:18 [facility] 07/08 09:47 Order name: EKG; Complete Time: 09:47 [facility] 07/08 09:47 Order name: Cardiac monitoring; Complete Time: 10:13 [facility] 07/08 09:47 Order name: EKG - Nurse/Tech; Complete Time: 10:21 [facility] 07/08 09:47 Order name: IV Saline Lock; Complete Time: 10:13 [facility] 07/08 09:47 Order name: Labs collected and sent; Complete Time: 10:13 [facility] 07/08 09:47 Order name: O2 Per Protocol; Complete Time: 10:13 [facility] 07/08 09:47 Order name: O2 Sat Monitoring; Complete Time: 10:13 [facility] EC:12 Rate is 58 beats/min. Rhythm is regular. QRS [place] is Normal. [place] interval is normal. QRS porter interval is normal. QT interval is normal. No Q waves. T waves are Normal. No ST changes noted. Clinical impression: Sinus bradycardia. Interpreted by me. Reviewed by me. Administered Medications: 10:13 Drug: NS 0.9% IV 1000 ml IV at 1000 ml once; to be given as a bolus over 60 minutes Route: IV; Rate: 1000 ml; Site: right wrist; 10:13 Drug: foLIC Acid IVPB 1 mg IVPB once Route: IVPB; Site: right wrist; 12:47 CANCELLED (Duplicate Order): TNK FOR STROKE - tenecteplase(administer 10 ml ns porter flush before and after tenecteplase) 15 mg IV at per protocol once; 0.25mg/kg, MAX DOSE 25 mg, IVP over 5 seconds 13:12 Drug: Potassium PO Effervescent Tablet 50 mEq PO once; dissolve in 4 ounces of water or kb4 juice Route: PO; 13:18 Follow up: Response: No adverse reaction kb4 Disposition Summary: 07/08/25 13:16 Discharge Ordered Notes: Location: Home porter Problem: new porter Symptoms: have improved porter Condition: Stable porter Diagnosis - Syncope Near porter - Hypokalemia porter - Occlusion and stenosis of unspecified carotid artery - RIGHT SEVERE DISEASE porter Followup: porter - With: Private Physician - When: 2 - 3 days - Reason: Recheck today's complaints, Continuance of care, Re-evaluation by your physician Discharge Instructions: - Discharge Summary Sheet porter - Potassium Content of Foods porter - Near-Syncope porter - Syncope porter - Near-Syncope, [id number] porter - Hypokalemia porter Forms: - Medication Reconciliation Form porter - Antibiotic Education porter - Prescription Opioid Use porter - Patient Portal Instructions porter - Leadership Thank You Letter [facility] Prescriptions: - Eliquis 5 mg Oral tablet - take 1 tablet ORAL route 2 times per day; 60 tablet; Refills: 0, Product [facility] Selection Permitted - Potassium Chloride 20 meq Oral Packet - take 1 packet ORAL route once daily 1 packet in 6 (six) ounces of water or porter juice; Take after meal; 14 packet; Refills: 0, Product Selection Permitted NIH Stroke Scale - NIH Stroke Score Date: 07/08/2025 Time: 13:12 Total Score = 0 10. Dysarthria (speech clarity - read or repeat words) - 0(Normal) 11. Extinction and Inattention (visual/tactile/auditory/spatial/personal) - 0(No abnormality) 1a. Level of Consciousness (LOC) - 0(Alert) 1b. Level of Consciousness (LOC) (Month \T\ Age) - 0(Both) 1c. LOC Commands (Open \T\ Closes Eyes/Beauty Culture Teacher) - 0(Both) 2. Best Gaze (Lateral Gaze Paresis) - 0(Normal) 3. Visual Field Loss - 0(No visual loss) 4. Facial Palsy - 0(Normal) 5a. Left Arm: Motor (10-second hold) - 0(No drift) 5b. Right Arm: Motor (10-second hold) - 0(No drift) 6a. Left Leg: Motor (5-second hold - always test supine) - 0(No drift) 6b. Right Leg: Motor (5-second hold - always test supine) - 0(No drift) 7. Limb Ataxia (finger/nose \T\ heel/villela - test with eyes open) - 0(Absent) 8. Sensory Loss (pinprick arms/legs/face) - 0(Normal) 9. Best Language: Aphasia (description/naming/reading) - 0(No aphasia) Initials: porter Signatures: Dispatcher [employer] EDMS Fabio Gerber MD MD cha Calderon, Audri, RN RN aa5 Linsey Mckeon RN RN zm Bowen, Kayla, RN RN kb4 Corrections: (The following items were deleted from the chart) 09:47 09:47 Head Brain Wo Cont+CT.RAD.BRZ ordered. EDMS EDMS 09:47 09:47 Head Angio+CT.RAD.BRZ ordered. EDMS EDMS 09:47 09:47 Neck Angio+CT.RAD.BRZ ordered. EDMS EDMS 12:47 12:46 TNK FOR STROKE - Tenecteplase IV (Administer 10 ml NS flush BEFORE porter and AFTER tenecteplase) 15 mg IV at per protocol once; 0.25mg/kg, MAX DOSE 25 mg, IVP over 5 seconds ordered. porter
== END 2025-07-08 13:29 | disposition home or self-care (01) ==
LOC: ER 09:29
DX: R55 Syncope and collapse (principal); E87.6 Hypokalemia; I65.21 Occlusion and stenosis of right carotid artery; I48.91 Unspecified atrial fibrillation; I10 Essential (primary) hypertension; E11.9 Type 2 diabetes mellitus without complications; J44.9 Chronic obstructive pulmonary disease, unspecified; Z88.0 Allergy status to penicillin; Z88.5 Allergy status to narcotic agent; Z91.040 Latex allergy status; F17.210 Nicotine dependence, cigarettes, uncomplicated
CPT/HCPCS: 93005; 85025; 80048; 36415; 83735; 85610; 80076; 81003; 84484; 83880; 70450; 70496; 70498; 71045; 96374; 99285; Q9967; J7030

== ENCOUNTER 2025-07-13 12:01 | Day surgery (SDC) | payer OTHER ==
[2025-07-13] MEDS ORDERED: HEPA 1000U/500MLS 2,000 UNIT/1,000 ML BAG IV ONE ×2 (13:46→14:01)
[2025-07-13] MEDS ORDERED: HEPARIN 10,000 UNIT/10 ML VIAL IV ONE (13:46)
[2025-07-13] MEDS ORDERED: LIDOCAINE 1% 20 ML MDV ONE (14:02)
[2025-07-13] MEDS ORDERED: FENTANYL CITR 100 MCG/2 ML ONE (14:10)
[2025-07-13] MEDS ORDERED: NA CHLORIDE 0.9% 500 ML ONE (14:10)
[2025-07-13] MEDS ORDERED: MIDAZOLAM HCL 2 MG/2 ML INJ ONE (14:10)
[2025-07-13 17:58] VITALS: BP 127/71; O2SAT 95
--- NOTE | 2025-07-13 23:05 | OP ---
Date of Procedure: 07/13/2025 Surgeon: Claus Ruiz Indication: Selective bilateral carotid angiogram. Indication: Carotid stenosis by Doppler. Access: Right common femoral artery 5-Puerto Rican, closed with 5-[place]ican Mynx closure device. Complications: None. Bleeding: Less than 50 mL. Total Sedation Time: 1 hour, used fentanyl and Versed. Description Of Procedure: After risks, benefits, and alternatives were explained, the patient agreed to procedure and signed informed consent. The patient was brought into cardiac catheterization labo ratory, prepped and draped in usual sterile fashion. Then, I accessed right common femoral artery us ing micropuncture kit, ultrasound guidance, and fluoroscopy, placed 5-[place] Goodell sheath and took 4-[place] 3DRC catheter into the aortic root, engaged the right common carotid, took standard views a nd then left common carotid, took standard views and removed the catheter and the sheath. A 5-[place] Mynx closure device was used for closure with good hemostasis. Findings: 1. Right common carotid is normal. Right external carotid is normal and the right internal carotid h as severe heavily calcified 80% to 90% stenosis. 2. The left common carotid is normal. Left external carotid is normal. Left internal carotid has ab out 10% to 20% stenosis. Conclusion: Severe right internal carotid artery stenosis. Recommendation: Endarterectomy. SR/MODL Voice ID: [id number] Report ID: [id number]
== END 2025-07-13 17:15 | disposition home health service (06) ==
LOC: CCL 12:01
PROVIDERS: ATTEND Internal Medicine
DX: I65.23 Occlusion and stenosis of bilateral carotid arteries (principal); I73.9 Peripheral vascular disease, unspecified; I48.0 Paroxysmal atrial fibrillation; I10 Essential (primary) hypertension; E11.9 Type 2 diabetes mellitus without complications; F17.210 Nicotine dependence, cigarettes, uncomplicated; Z79.899 Other long term (current) drug therapy; Z88.0 Allergy status to penicillin; Z88.5 Allergy status to narcotic agent
CPT/HCPCS: 36415; 82947; 85730; 36222; 76937; C1893; J2003; J2250; J3010; J1644 ×2; J7040; C1760; 99152